=== PATIENT | male | born 1950 | race Caucasian/White ===

== ENCOUNTER 2018-12-03 05:52 | Inpatient (IN) | payer MEDICARE ==
[2018-12-02 14:00] LABS: BASOPHILS # (AUTO) 0.1 (0.0-0.1); BASOPHILS % 0.5 % (0.0-1.0); EOSINOPHILS # (AUTO) 0.3 (0.0-0.4); EOSINOPHILS % 2.8 % (0.0-6.0); HEMATOCRIT 50.9 % (38.2-49.6); HEMOGLOBIN 16.7 g/dL (14.0-18.0); LYMPHOCYTES # (AUTO) 2.4 (1.0-3.2); LYMPHOCYTES % 22.7 % (18.0-39.1); MEAN CORPUSCULAR HEMOGLOBIN 27.4 pg (28-32); MEAN CORPUSCULAR HGB CONC 32.8 g/dL (31-35); MEAN CORPUSCULAR VOLUME 83.6 fL (81-99); MONOCYTES # (AUTO) 0.7 (0.2-0.8); MONOCYTES % 6.8 % (4.4-11.3); NEUTROPHILS # (AUTO) 6.9 (2.1-6.9); NEUTROPHILS % 66.8 % (38.7-80.0); PLATELET COUNT 242 x10e3/uL (140-360); RED BLOOD COUNT 6.09 x10e6/uL (4.3-5.7)
--- NOTE | 2018-12-02 15:12 | Diagnostic Imaging Report ---
EXAMINATION: CHEST 2 VIEWS INDICATION: Pre-op. COMPARISON: None FINDINGS: TUBES and LINES: None. LUNGS: Lungs are well inflated. There is no evidence of pneumonia or pulmonary edema. PLEURA: No pleural effusion or pneumothorax. HEART AND MEDIASTINUM: The cardiomediastinal silhouette is mildly enlarged. Tortuous thoracic aorta. BONES AND SOFT TISSUES: No acute osseous abnormality. UPPER ABDOMEN: No free air under the diaphragm. IMPRESSION: No acute radiographic abnormality. Signed by: Dr. Vinnie Garcia MD on 12/02/2018 3:09 PM
[~2018-12-03] VITALS: Ht 182.9 cm; Wt 107.1 kg
[~2018-12-03 05:52] MED LIST: ADVIL100 MG PO; ALEVE220 M1 PO; ZYRTEC10 M3 PO
--- OUTSIDE RECORDS SUMMARY | 2018-12-03 05:59 | XMS REPORT | Continuity of Care Document ---
Author Author [facility] Interface Address Unknown Phone Unavailable Problems Problem Status Onset Date Classification Date Reported Comments Source R12, K29.00, K22.0 Active 06/24/2017 [facility] UNK Active 03/26/2017 [facility] PNEUMONIA Active 10/16/2015 [facility] COUGH/ FEVER Active 10/16/2015 [facility] 483 - PNEUMONIA: ORGA Active 12/19/2013 [facility] [place] Arthritis Active Problem 07/04/2017 [facility] Hearing decreased Active Problem 07/04/2017 [facility] Heartburn Active Problem 07/04/2017 [facility] Leukocytosis Resolved Problem 07/04/2017 [facility] Anxiety and depression Active Problem 07/04/2017 [facility] Sleep apnea Active Problem 07/04/2017 [facility] PNEUMONIA, UNSPECIFIED ORGANISM Active [facility] DYSPHAGIA, UNSPECIFIED Active [facility] CANDIDAL ESOPHAGITIS Active [facility] FUNCTIONAL DYSPEPSIA Active [facility] HEARTBURN Active [facility] ACUTE GASTRITIS WITHOUT BLEEDING Active [facility] ACHALASIA OF CARDIA Active [facility] Medications Medication Details Route Status Patient Instructions Ordering Provider Order Date Source Albuterol 0.833 MG/ML / Ipratropium [place] 0.167 MG/ML Inhalant Solution 3 mL, Route: NEB, Drug Form: SOLN, Dosing Weight 113.636, kg, ONCE, STAT, Start date: 04/09/17 6:36:00 CDT, Stop date: 04/09/17 6:36:00 CDTNotes: (Same as: Thelma) Inactive 04/09/2017 [facility] sodium chloride 0.9% 500 ml INJ 500 mL 500 mL, Rate: 25 ml/hr, Infuse over: 20 hr, Route: IV, Dosing Weight 113.636 kg, Total Volume: 500, Start date: 04/09/17 6:36:00 CDT, Duration: 30 day, Stop date: 05/09/17 6:35:00 CDT Inactive 04/09/2017 [facility] Aleve 220 mg, PO, as needed, 0 Refill(s) Active 04/07/2017 [facility] Advil PO, as needed Active 04/07/2017 [facility] Amoxicillin 875 MG / Clavulanate 125 MG Oral Tablet [Augmentin 875-mg] 875 mg=1 tab, PO, Q12H, X 7 day, # 14 tab, 0 Refill(s) Active 10/19/2015 [facility] pantoprazole 40 MG Granules [Protonix] =1 Pack, PO, Daily, # 30 ea, 0 Refill(s) Active 10/19/2015 [facility] Sucralfate 100 MG/ML Oral Suspension 1 gm=10 ml, PO, Before Meals & Bedtime, # 200 ml, 1 Refill(s) Active 10/19/2015 [facility] PLease do not give Vanco prior to trough is collected PLease do not give Vanco prior to trough is collected, Reminder, Drug form: MISC, Route: MISC, ONCE, 10/18/15 17:00:00 CDT, Stop date: 10/18/15 17:00:00 CDT Inactive 10/18/2015 [facility] Protonix 40 mg, Route: IVP, Drug form: INJ, BID, Dosing Weight 113.636, kg, Start date: 10/18/15 9:00:00 CDT, Duration: 30 day, Stop date: 11/16/15 17:00:00 CDTNotes: For IV push reconstitute with 10 ml 0.9% sod ium chloride and push over 2 minutes. (Same as: Protonix) No Longer Active 10/18/2015 [facility] Sucralfate 100 MG/ML Oral Suspension [Carafate] 1 gm, 10 mL, Route: PO, Drug form: SUSP, QID, Dosing Weight 113.636, kg, Start date: 10/18/15 9:00:00 CDT, Duration: 30 day, Stop date: 11/16/15 21:00:00 CDTNotes: Enteral feeds may interfere with the absorption of this medication. Shake well. Take 1 hr before or 2 hrs after antacids, dairy pdt, minerals & meals. (Same As: Carafate) No Longer Active 10/18/2015 [facility] Sodium Chloride 0.154 MEQ/ML Injectable Solution 1,000 mL, Rate: 25 ml/hr, Infuse over: 40 hr, Route: IV, Dosing Weight 113.636 kg, Total Volume: 1,000, Start date: 10/18/15 8:11:00 CDT, Duration: 30 day, Stop date: 11/17/15 8:10:00 CDT No Longer Active 10/18/2015 [facility] Reglan 10 mg, 2 mL, Route: IVP, Drug form: INJ, Q6H, Dosing Weight 113.636, kg, Start date: 10/18/15 0:00:00 CDT, Duration: 30 day, Stop date: 11/16/15 18:00:00 CDTNotes: (Same as: Reglan) No Longer Active 10/18/2015 [facility] meropenem 500 mg, Route: IV, Q6Hnow, Dosing Weight 113.636, kg, Start date: 10/16/15 16:00:00 CDT, Duration: 30 day, Stop date: 11/15/15 14:00:00 CDTNotes: Same as Merrem MEDICATION WASTE Product Size: 500 mg Product Wasted: ___ mg No Longer Active 10/16/2015 [facility] Ondansetron 4 mg, 2 mL, Route: IVP, Drug form: INJ, Q6H, Dosing Weight 113.636, kg, PRN Nausea & Vomiting, Start date: 10/16/15 14:01:00 CDT, Duration: 30 day, Stop date: 11/15/15 14:00:00 CDTNotes: (Same as: Zofran) MEDICATION WASTE Product Size: 4 mg Product Wasted: ___ mg No Longer Active 10/16/2015 [facility] Sodium Chloride 0.154 MEQ/ML Injectable Solution 1,000 mL, Rate: 75 ml/hr, Infuse over: 13.3 hr, Route: IV, Dosing Weight 113.636 kg, Total Volume: 1,000, Start date: 10/16/15 14:01:00 CDT, Duration: 30 day, Stop date: 11/15/15 14:00:00 CDT No Longer Active 10/16/2015 [facility] Acetaminophen 650 mg, 2 tab, Route: PO, Drug form: TAB, Q4H, Dosing Weight 113.636, kg, PRN Pain 1-3/Temp > 100.4 F, Start date: 10/16/15 14:01:00 CDT, Duration: 30 day, Stop date: 11/15/15 14:00:00 CDTNotes: Do not exceed 4 gm/day. (Same as: Tylenol) No Longer Active 10/16/2015 [facility] Saline Flush 0.9% 10 ml, Route: IVP, Drug Form: INJ, Dosing Weight 113.636, kg, PRN, PRN Line Flush, Start date: 10/16/15 14:01:00 CDT, Duration: 30 day, Stop date: 11/15/15 14:00:00 CDTNotes: (Same as: BD Posiflush) No Longer Active 10/16/2015 [facility] Vancomycin 1 gm, Route: IVPB, P06Deml, Dosing Weight 113.636, kg, Priority: STAT, Start date: 10/16/15 14:01:00 CDT, Duration: 30 day, Stop date: 11/15/15 6:00:00 CDTNotes: TIME CRITICAL MEDICATION (Same As: Vancocin) Infusion rate 2001 mg: infuse over 2.5 hours MEDICATION WASTE Product Size: 1000 mg Product Wasted: ___ mg No Longer Active 10/16/2015 [facility] Saline Flush 0.9% 10 mL, Route: IVP, Drug Form: INJ, Dosing Weight 113.636, kg, PRN, PRN Line Flush, Start date: 10/16/15 10:22:00 CDT, Duration: 30 day, Stop date: 11/15/15 10:21:00 CDTNotes: Same as: BD Posiflush Sterile Inactive 10/16/2015 [facility] Allergies, Adverse Reactions, Alerts Substance Category Reaction Severity Reaction type Status Date Reported Comments Source Immunizations Immunization Date Given Site Status Last Updated Comments Source Results Order Name Results Value Reference Range Date Interpretation Comments Source Stomach emptying NM Stomach emptying NM Patient Name: JEFFRY GARNER : 1950; Age: 67 years Male MR: [id number] Study: Stomach emptying NM 07/01/2017 9:15 AM [employer]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 COMPARISON: CT on 10/18/2015 TECHNIQUE: Gastric emptying study is performed using 1 mCi of technetium 99m sulfur colloid mixed with scrambled egg administered orally. Total of 4 hours of static imaging was performed at 30 minute intervals in the frontal plane up to 2 hours followed by additional planar imaging at 3 hours and 4 hours. The data was used for gastric emptying calculation/extrapolation. FINDINGS: Significantly delayed gastric emptying. There is consistent radiotracer activity within the dilated esophagus even after 4 hours. There is progression of the radiotracer into bowel. The T-1/2 is 163 minutes (normal for solids < 90 minutes). Gastric emptying at 90 minutes: -5 % Gastric emptying at 2 hours: 7 % (normal greater than 60%) Gastric emptying at 3 hours: 31 % (normal greater than 70%) Gastric emptying at 4 hours: 67 % (normal greater than 90%) IMPRESSION: Significantly delayed gastric emptying suggestive of gastroparesis. Consistent radiotracer activity within the dilated esophagus even after 4 hours, suspicious for high-grade gastroesophageal reflux or achalasia. SL: [id number] 07/01/2017 - - Read by: Tamanna Mello MD Dictated Date/time: 07/01/17 14:22 Electronically Signed by: Tamanna Mello MD 07/01/17 14:26 FINAL REPORT [facility] MCV 82.9 fL 80.0 - 94.0 10/19/2015 [facility] Hgb 14.7 g/dL 14.0 - 18.0 10/19/2015 [facility] Hct 46.2 % 42.0 - 54.0 10/19/2015 [facility] RBC 5.58 M/CMM 4.70 - 6.10 10/19/2015 [facility] WBC 11.4 K/CMM 3.7 - 10.4 10/19/2015 [facility] Platelet 218 K/CMM 133 - 450 10/19/2015 [facility] MPV 7.8 fL 7.4 - 10.4 10/19/2015 [facility] RDW 14.8 % 11.5 - 14.5 10/19/2015 [facility] MCH 26.3 pg 27.0 - 31.0 10/19/2015 [facility] MCHC 31.8 g/dL 32.0 - 36.0 10/19/2015 [facility] Basophils # 0.1 K/CMM 0.0 - 0.2 10/19/2015 [facility] Monocytes # 0.9 K/CMM 0.0 - 0.8 10/19/2015 [facility] HEMATOLOGY Lymphocytes # 2.1 K/CMM 1.0 - 5.5 10/19/2015 [facility] HEMATOLOGY Eosinophils # 0.3 K/CMM 0.0 - 0.5 10/19/2015 [facility] HEMATOLOGY Segs 70.8 % 45.0 - 75.0 10/19/2015 [facility] Lymphocytes 18.5 % 20.0 - 40.0 10/19/2015 [facility] Segs-Bands # 8.1 K/CMM 1.5 - 8.1 10/19/2015 [facility] Basophils 0.6 % 0.0 - 1.0 10/19/2015 [facility] Monocytes 7.5 % 2.0 - 12.0 10/19/2015 [facility] Eosinophils 2.6 % 0.0 - 4.0 10/19/2015 [facility] TOXICOLOGY Vanco Tr 8.3 ug/ml 10/18/2015 [facility] TOXICOLOGY Vanco Tr TND 1800 10/18/2015 [facility] Abdomen/Pelvis w IV contrast CT Abdomen/Pelvis w IV contrast CT Patient Name: JEFFRY GARNER : 1950; Age: 65 years y/o Male MR: [id number] * I. COMPUTED TOMOGRAPHY SCAN OF THE ABDOMEN with contrast. * II. COMPUTED TOMOGRAPHY SCAN OF THE PELVIS with contrast HISTORY: : Abdominal distension; achalasia COMPARISON: There are no prior CT scans of the abdomen or pelvis available for comparison or review. A chest computed tomography scan without contrast of 10/16/2015 was reviewed. * TECHNIQUE: I. COMPUTED TOMOGRAPHY SCAN OF THE ABDOMEN with contrast: Helical CT images were obtained on a multidetector computed tomography from the domes the diaphragms to the iliac crests following the intravenous administration of nonionic iodinated contrast. Oral contrast was also provided. II. COMPUTED TOMOGRAPHY SCAN OF THE PELVIS with contrast: Helical CT images were obtained on a multidetector computed tomography from the iliac crests to the pubic symphysis following the intravenous administration of nonionic iodinated contrast. Oral contrast was also provided. Coronal and sagittal reconstructions were obtained. CT radiation dose DLP: mGy-cm FINDINGS: There is no evidence of an acute intra-abdominal process. There is no free intraperitoneal gas, intra-abdominal abscess, focal inflammation, or bowel obstruction. The liver, spleen, pancreas, and adrenal glands are normal in appearance. The kidneys are normal in size and show good, symmetrical excretion without hydronephrosis. There is a 10 mm posterior exophytic left upper pole renal cyst. There is 8mm posterior exophytic right lower pole renal cyst. No other focal lesions are seen. There is distention of the esophagus as well as thickening of the wall. The findings are similar to the recent chest computed tomography scan and are consistent with the patient's history of achalasia. The gastrointestinal structures are otherwise unremarkable. There is no evidence of obstruction or ileus. The appendix is not definitely visualized. Hhere is no evidence of appendicitis. There is marked enlargement of the prostate gland which measures 7.6 x 5.5 cm in maximal cross-section. No mass or adenopathy is seen within the abdomen or pelvis. There is no ascites or other fluid collection. The aorta is normal in caliber. The visualized lung bases are clear. There has been clearing of the vague infiltrates noted on the recent chest computed tomography scan. There are no pleural effusions. The heart is normal in size. There is no pericardial effusion. There are mild scattered degenerative changes involving the visualized spine. The osseous structures are otherwise unremarkable. No blastic or destructive lesions are seen. IMPRESSION: 1. No evidence for an acute intra-abdominal process. 2. Dilated esophagus with thickened wall, similar to the recent chest computed tomography scan and consistent with history of achalasia. 3. Single very small bilateral renal cysts. 4. Marked enlargement of the prostate gland. 5. Resolution of previous noted pulmonary infiltrates from the prior chest computed tomography scan of 10/16/2015. SL: [id number] 10/18/2015 - - Read by: Elijah Sharma MD Dictated Date/time: 10/18/15 13:14 Electronically Signed by: Elijah Sharma MD 10/18/15 13:22 FINAL REPORT [facility] wo contrast CT Chest wo contrast CT CT CHEST WITHOUT CONTRAST: HISTORY: Dyspnea, pneumonia. TECHNIQUE: Multislice axial acquisitions were done through the chest without contrast. Sagittal and coronal reformatted images were also obtained. FINDINGS: The esophagus is mildly dilated, thick walled and filled with fluid. There is no discrete mass or hiatal hernia demonstrated. There is no other mediastinal mass or significant lymph node enlargement. There are mild interstitial infiltrates throughout the left lung with view small areas of confluence or groundglass opacity in the left upper lobe. A few mild interstitial opacities in the right upper lobe are also noted. There is no lung consolidation, mass or atelectasis. There are no significant pleural abnormalities. There are changes in the thoracic spine are noted. There are no acute osseous abnormalities. IMPRESSION: 1. Esophageal dilatation with wall thickening and fluid. There is no definite obstructing lesion however endoscopic evaluation is suggested for further evaluation. 2. Mild interstitial infiltrates and a few small groundglass opacities in the lungs, more prominent on the left. In light of the esophageal abnormality, inflammatory changes due to aspiration would be a consideration. [id number] 10/16/2015 - - Read by: Cameron Collado MD Dictated Date/time: 10/17/15 09:59 Electronically Signed by: Cameron Collado MD 10/17/15 10:07 FINAL REPORT [facility] CHEM PANEL Procalcitonin Lvl 0.66 ng/mL 0.00 - 0.10 10/16/2015 [facility] VIRAL - SEROLOGY Influ A Negative (10/16/15 12:18 PM) Negative 10/16/2015 [facility] VIRAL - SEROLOGY Influ B Negative (10/16/15 12:18 PM) Negative 10/16/2015 [facility] CARDIAC ENZYMES CK MB Index 0.9 0.0 - 2.5 10/16/2015 [facility] CARDIAC ENZYMES CK MB 0.5 ng/mL 0.5 - 3.6 10/16/2015 [facility] CARDIAC ENZYMES Troponin-I null 0.00 - 0.40 10/16/2015 [facility] CARDIAC ENZYMES BNP 24 pg/mL <=100 pg/mL 10/16/2015 [facility] CARDIAC ENZYMES Total CK 56 unit/L 12 - 191 10/16/2015 [facility] ELECTROLYTES Potassium Lvl 4.1 meq/L 3.5 - 5.1 10/16/2015 [facility] ELECTROLYTES Sodium Lvl 137 meq/L 135 - 145 10/16/2015 [facility] ELECTROLYTES Chloride Lvl 107 meq/L 95 - 109 10/16/2015 [facility] ELECTROLYTES Calcium Lvl 8.8 mg/dL 8.5 - 10.5 10/16/2015 [facility] ELECTROLYTES AGAP 9.1 meq/L 10.0 - 20.0 10/16/2015 [facility] ELECTROLYTES CO2 25 meq/L 24 - 32 10/16/2015 [facility] ELECTROLYTES Creatinine Lvl 1.03 mg/dL 0.50 - 1.40 10/16/2015 [facility] ELECTROLYTES Glucose Lvl 107 mg/dL 70 - 99 10/16/2015 [facility] ELECTROLYTES BUN 15 mg/dL 7 - 22 10/16/2015 [facility] ELECTROLYTES eGFR 76 mL/min/1.73m2 10/16/2015 Result Comment: The eGFR is calculated using the CKD-EPI formula. In most young, healthy individuals the eGFR will be >90 mL/min/1.73m2. The eGFR declines with age. An eGFR of 60-89 may be normal in some populations, particularly the elderly, for whom the CKD-EPI formula has not been extensively validated. Use of the eGFR is not recommended in the following populations: Individuals with unstable creatinine concentrations, including patients and those with serious co-morbid conditions. Patients with extremes in muscle mass or diet. The data above are obtained from the National Kidney Disease Education Program (NKDEP) which additionally recommends that when the eGFR is used in patients with extremes of body mass index for purposes of drug dosing, the eGFR should be multiplied by the estimated BMI. [facility] HEMATOLOGY Plt Morph Normal (10/16/15 10:58 AM) 10/16/2015 [facility] RBC Morph Normal (10/16/15 10:58 AM) 10/16/2015 [facility] Basophils 0.4 % 0.0 - 1.0 10/16/2015 [facility] Segs-Bands # 21.6 K/CMM 1.5 - 8.1 10/16/2015 [facility] Lymphocytes # 1.1 K/CMM 1.0 - 5.5 10/16/2015 [facility] HEMATOLOGY Monocytes # 1.1 K/CMM 0.0 - 0.8 10/16/2015 [facility] HEMATOLOGY Eosinophils # 0.1 K/CMM 0.0 - 0.5 10/16/2015 [facility] HEMATOLOGY Basophils # 0.1 K/CMM 0.0 - 0.2 10/16/2015 [facility] HEMATOLOGY Eosinophils 0.6 % 0.0 - 4.0 10/16/2015 [facility] HEMATOLOGY Monocytes 4.7 % 2.0 - 12.0 10/16/2015 [facility] HEMATOLOGY Segs 89.5 % 45.0 - 75.0 10/16/2015 [facility] Lymphocytes 4.8 % 20.0 - 40.0 10/16/2015 [facility] Platelet 206 K/CMM 133 - 450 10/16/2015 [facility] RDW 14.7 % 11.5 - 14.5 10/16/2015 [facility] MPV 7.5 fL 7.4 - 10.4 10/16/2015 [facility] Hgb 15.5 g/dL 14.0 - 18.0 10/16/2015 [facility] RBC 5.88 M/CMM 4.70 - 6.10 10/16/2015 [facility] MCV 82.5 fL 80.0 - 94.0 10/16/2015 [facility] Hct 48.5 % 42.0 - 54.0 10/16/2015 [facility] MCHC 31.9 g/dL 32.0 - 36.0 10/16/2015 [facility] MCH 26.3 pg 27.0 - 31.0 10/16/2015 [facility] WBC 24.0 K/CMM 3.7 - 10.4 10/16/2015 [facility] Chest 2 views DX Chest 2 views DX Chest 2 views DX CLINICAL HISTORY: Dyspnea COMPARISON: 12/19/2013 FINDINGS: LUNGS: Lungs are reasonably well inflated. Interval development of mild diffuse increase in reticular opacities involving both lungs. No pneumothorax is evident. Trachea is midline. Pulmonary vasculature is within normal limits. CARDIOMEDIASTINUM: Cardiomediastinal silhouette is within normal limits. OSSEOUS STRUCTURES: No significant bony abnormality is noted. Multiple EKG leads and other wires project over the patient's chest. IMPRESSION: Mild diffuse increase in reticular opacities involving both lungs. Primary differential considerations are interstitial pneumonia versus interstitial pneumonitis SL: [id number] 10/16/2015 - - Read by: Anton Hoffman MD Dictated Date/time: 10/16/15 10:53 Electronically Signed by: Anton Hoffman MD 10/16/15 10:55 FINAL REPORT [facility] Chest 2 views Chest 2 views CHEST RADIOGRAPHY CLINICAL HISTORY: Shortness of breath. COMPARISON IMAGING: None. FINDINGS: Two views of the chest were acquired and submitted for evaluation. No pleural fluid is identified. The contour of the cardiac silhouette is within normal limits. There is no significant pulmonary consolidation or nodularity. Bones are unremarkable. IMPRESSION: No significant abnormality. 12/19/2013 - - Read by: Bashir Yusuf MD Dictated Date/time: 12/19/13 13:03 Electronically Signed by: Bashir Yusuf MD 12/19/13 13:03 FINAL REPORT [facility] Vital Signs Vital Sign Value Date Comments Source Systolic (mm Hg) 134 04/15/2017 [facility] Diastolic (mm Hg) 79 04/15/2017 [facility] Respitory Rate 18 04/15/2017 [facility] Systolic (mm Hg) 128 04/09/2017 [facility] Diastolic (mm Hg) 88 04/09/2017 [facility] Respitory Rate 20 04/09/2017 [facility] Systolic (mm Hg) 115 04/09/2017 [facility] Diastolic (mm Hg) 86 04/09/2017 [facility] Respitory Rate 21 04/09/2017 [facility] Systolic (mm Hg) 122 04/09/2017 [facility] Diastolic (mm Hg) 81 04/09/2017 [facility] Respitory Rate 20 04/09/2017 [facility] Temperature Oral (F) 98.3 F 04/07/2017 [facility] Heart Rate 79 04/07/2017 [facility] BMI Calculated 33.98 04/07/2017 [facility] Height 182.88 cm 04/07/2017 [facility] Weight 113.636 04/07/2017 [facility] Systolic (mm Hg) 103 10/19/2015 [facility] Diastolic (mm Hg) 69 10/19/2015 [facility] Temperature Oral (F) 98.1 F 10/19/2015 [facility] Heart Rate 66 10/19/2015 [facility] Respitory Rate 18 10/19/2015 [facility] Systolic (mm Hg) 96 10/19/2015 [facility] Diastolic (mm Hg) 57 10/19/2015 [facility] Respitory Rate 18 10/19/2015 [facility] Temperature Oral (F) 98.2 F 10/19/2015 [facility] Heart Rate 67 10/19/2015 [facility] Systolic (mm Hg) 109 10/19/2015 [facility] Diastolic (mm Hg) 67 10/19/2015 [facility] Respitory Rate 16 10/19/2015 [facility] Heart Rate 66 10/19/2015 [facility] Temperature Oral (F) 98.1 F 10/19/2015 [facility] Weight 113.636 10/16/2015 [facility] BMI Calculated 33.98 10/16/2015 [facility] Height 182.88 cm 10/16/2015 [facility] BMI Calculated 33.98 10/16/2015 [facility] Height 182.88 cm 10/16/2015 [facility] Weight 113.636 10/16/2015 [facility] Encounters Location Location Details Encounter Type Encounter Number Reason For Visit Attending Provider ADM Date DC Date Status Source [facility] [place] [facility] [id number] Rian Herrerae 12/19/2013 12/20/2013 [facility] Inpatient [id number] Florentino Hernandez 10/16/2015 10/19/2015 [facility] Bedded Outpatient [id number] [facility] 04/09/2017 04/09/2017 [facility] Bedded Outpatient [id number] [facility] 04/15/2017 04/15/2017 [facility] Outpatient [id number] Hiader Velarde 07/01/2017 07/02/2017 [facility] Procedures Procedure Code Date Perfomer Comments Source Hernia repair [id number] 07/06/1998 [facility] Cystoscopy [id number] [facility] Ligament repair [id number] [facility]
--- OUTSIDE RECORDS SUMMARY | 2018-12-03 05:59 | XMS REPORT | Summary of Care ---
Author Author [facility] Organization [facility] Address Unknown Phone Unavailable Encounter HQ Marva(RADHA) [id number] Date(s): 10/16/15 - 10/19/15 [facility] [address] [place] [address]- Discharge Disposition: Home Attending Physician: Florentino Hernandez MD Admitting Physician: Florentino Hernandez MD Vital Signs 1 2 3 Most recent to oldest [Reference Range]: 182.88 cm (10/16/15 3:30 PM) 182.88 cm (10/16/15 10:10 AM) Height 98.1 DegF (10/19/15 3:00 PM) 98.2 DegF (10/19/15 11:00 AM) 98.1 DegF (10/19/15 7:00 AM) Temperature Oral [96.4-99.1 DegF] 103/69 mmHg (10/19/15 3:00 PM) 96/57 mmHg (10/19/15 11:00 AM) 109/67 mmHg (10/19/15 7:00 AM) Blood Pressure [90-140/60-90 mmHg] 18 BRMIN (10/19/15 3:00 PM) 18 BRMIN (10/19/15 11:00 AM) 16 BRMIN (10/19/15 7:00 AM) Respiratory Rate [14-20 BRMIN] 66 bpm (10/19/15 3:00 PM) 67 bpm (10/19/15 11:00 AM) 66 bpm (10/19/15 7:00 AM) Peripheral Pulse Rate [60-100 bpm] 113.636 kg (10/16/15 3:30 PM) 113.636 kg (10/16/15 10:10 AM) Weight 33.98 m2 (10/16/15 3:30 PM) 33.98 m2 (10/16/15 10:10 AM) Body Mass Index Problem List No data available for this section Allergies, Adverse Reactions, Alerts Substance Reaction Severity Status NKDA Active Medications acetaminophen 650 mg, 2 tab, Route: PO, Drug form: TAB, Q4H, Dosing Weight 113.636, kg, PRN Pa in 1-3/Temp > 100.4 F, Start date: 10/16/15 14:01:00 CDT, Duration: 30 day, Stop date: 11/15/15 14:00:00 CDT Notes: Do not exceed 4 gm/day. (Same as: Tylenol) Start Date: 10/16/15 Stop Date: 10/19/15 Status: Discontinued Augmentin 875 mg oral tablet 875 mg=1 tab, PO, Q12H, X 7 day, # 14 tab, 0 Refill(s) Start Date: 10/19/15 Stop Date: 10/26/15 Status: Ordered Carafate 1 g/10 mL oral suspension 1 gm, 10 mL, Route: PO, Drug form: SUSP, QID, Dosing Weight 113.636, kg, Start d ate: 10/18/15 9:00:00 CDT, Duration: 30 day, Stop date: 11/16/15 21:00:00 CDT Notes: Enteral feeds may interfere with the absorption of this medication. Clay e well. Take 1 hr before or 2 hrs after antacids, dairy pdt, minerals & meals. (Same As: Carafate) Start Date: 10/18/15 Stop Date: 10/19/15 Status: Discontinued meropenem + Sodium Chloride 0.9% IV 100 mL 500 mg, Route: IV, Q6Hnow, Dosing Weight 113.636, kg, Start date: 10/16/15 16:00 :00 CDT, Duration: 30 day, Stop date: 11/15/15 14:00:00 CDT Notes: Same as Merrem MEDICATION WASTE Product Size: 500 mgProduct Wast ed: ___ mg Start Date: 10/16/15 Stop Date: 10/19/15 Status: Discontinued ondansetron 4 mg, 2 mL, Route: IVP, Drug form: INJ, Q6H, Dosing Weight 113.636, kg, PRN Naus ea & Vomiting, Start date: 10/16/15 14:01:00 CDT, Duration: 30 day, Stop date: 11/15/15 14:00:00 CDT Notes: (Same as: Herb) MEDICATION WASTE Product Size: 4 mgProduct Was sadia: ___ mg Start Date: 10/16/15 Stop Date: 10/19/15 Status: Discontinued PLease do not give Vanco prior to trough is collected PLease do not give Vanco prior to trough is collected, Reminder, Drug form: MISC , Route: MISC, ONCE, 10/18/15 17:00:00 CDT, Stop date: 10/18/15 17:00:00 CDT Start Date: 10/18/15 Stop Date: 10/18/15 Status: Completed Protonix 40 mg, Route: IVP, Drug form: INJ, BID, Dosing Weight 113.636, kg, Start date: 0 10/18/15 9:00:00 CDT, Duration: 30 day, Stop date: 11/16/15 17:00:00 CDT Notes: For IV push reconstitute with 10 ml 0.9% sodium chloride and push over 2 minutes. (Same as: Protonix) Start Date: 10/18/15 Stop Date: 10/19/15 Status: Discontinued Protonix 40 mg oral granule =1 Pack, PO, Daily, # 30 ea, 0 Refill(s) Start Date: 10/19/15 Status: Ordered Reglan 10 mg, 2 mL, Route: IVP, Drug form: INJ, Q6H, Dosing Weight 113.636, kg, Start d ate: 10/18/15 0:00:00 CDT, Duration: 30 day, Stop date: 11/16/15 18:00:00 CDT Notes: (Same as: Reglan) Start Date: 10/18/15 Stop Date: 10/19/15 Status: Discontinued Saline Flush 0.9% 10 ml, Route: IVP, Drug Form: INJ, Dosing Weight 113.636, kg, PRN, PRN Line Flus h, Start date: 10/16/15 14:01:00 CDT, Duration: 30 day, Stop date: 11/15/15 14:0 0:00 CDT Notes: (Same as: BD Posiflush) Start Date: 10/16/15 Stop Date: 10/19/15 Status: Discontinued Saline Flush 0.9% 10 mL, Route: IVP, Drug Form: INJ, Dosing Weight 113.636, kg, PRN, PRN Line Flus h, Start date: 10/16/15 10:22:00 CDT, Duration: 30 day, Stop date: 11/15/15 10:2 1:00 CDT Notes: Same as: BD Posiflush Sterile Start Date: 10/16/15 Stop Date: 10/16/15 Status: Discontinued Sodium Chloride 0.9% IV 1,000 mL 1,000 mL, Rate: 25 ml/hr, Infuse over: 40 hr, Route: IV, Dosing Weight 113.636 k g, Total Volume: 1,000, Start date: 10/18/15 8:11:00 CDT, Duration: 30 day, Stop date: 11/17/15 8:10:00 CDT Start Date: 10/18/15 Stop Date: 10/19/15 Status: Discontinued Sodium Chloride 0.9% IV 1,000 mL 1,000 mL, Rate: 75 ml/hr, Infuse over: 13.3 hr, Route: IV, Dosing Weight 113.636 kg, Total Volume: 1,000, Start date: 10/16/15 14:01:00 CDT, Duration: 30 day, S top date: 11/15/15 14:00:00 CDT Start Date: 10/16/15 Stop Date: 10/19/15 Status: Discontinued sucralfate 1 g/10 mL oral suspension 1 gm=10 ml, PO, Before Meals & Bedtime, # 200 ml, 1 Refill(s) Start Date: 10/19/15 Status: Ordered vancomycin + Sodium Chloride 0.9% IV 250 mL 1 gm, Route: IVPB, [id number], Dosing Weight 113.636, kg, Priority: STAT, Start clayton e: 10/16/15 14:01:00 CDT, Duration: 30 day, Stop date: 11/15/15 6:00:00 CDT Notes: TIME CRITICAL MEDICATION(Same As: Vancocin)Infusion rate< 1000 mg: infuse over 1 [id number] - 1500 mg: infuse over 1.5 [id number] - 2000 mg: infuse over 2 hours> 2001 mg: infuse over 2.5 hours MEDICATION WASTE Product Size: 1000 mgProduct Wasted: ___ mg Start Date: 10/16/15 Stop Date: 10/19/15 Status: Discontinued Results ELECTROLYTES Most recent to 1 2 oldest [Reference Range]: Sodium Lvl [135-145 137 mEq/L mEq/L] (10/16/15 10:58 AM) Potassium Lvl 4.1 mEq/L [3.5-5.1 mEq/L] (10/16/15 10:58 AM) Chloride Lvl [95-109 107 mEq/L mEq/L] (10/16/15 10:58 AM) CO2 [24-32 mEq/L] 25 mEq/L (10/16/15 10:58 AM) AGAP [10.0-20.0 9.1 mEq/L mEq/L] *LOW* (10/16/15 10:58 AM) CHEM PANEL Most recent to 1 2 oldest [Reference Range]: Creatinine Lvl 1.03 mg/dL [0.50-1.40 mg/dL] (10/16/15 10:58 AM) eGFR 76 mL/min/1.73m2 1 *NA* (10/16/15 10:58 AM) BUN [7-22 mg/dL] 15 mg/dL (10/16/15 10:58 AM) Glucose Lvl [70-99 107 mg/dL mg/dL] *HI* (10/16/15 10:58 AM) Calcium Lvl 8.8 mg/dL [8.5-10.5 mg/dL] (10/16/15 10:58 AM) Procalcitonin Lvl 0.66 ng/mL [0.00-0.10 ng/mL] *HI* (10/16/15 12:18 PM) 1Result Comment: The eGFR is calculated using the [...] from the National Kidney Disease Education Program ( NKDEP) which additionally recommends that when the eGFR is used in patients with extremes of body mass index for purposes of drug dosing, the eGFR should be mul tiplied by the estimated BMI. CARDIAC ENZYMES Most recent to 1 2 oldest [Reference Range]: Total CK [12-191 56 unit/L unit/L] (10/16/15 10:58 AM) CK MB [0.5-3.6 0.5 ng/mL ng/mL] (10/16/15 10:58 AM) CK MB Index 0.9 [0.0-2.5] (10/16/15 10:58 AM) Troponin-I <0.02 ng/mL [0.00-0.40 ng/mL] (10/16/15 10:58 AM) BNP [<=100 pg/mL] 24 pg/mL (10/16/15 10:58 AM) TOXICOLOGY Most recent to 1 2 oldest [Reference Range]: Vanco Tr TND 1800 *NA* (10/18/15 5:21 PM) Vanco Tr 8.3 ug/ml *NA* (10/18/15 5:21 PM) HEMATOLOGY Most recent to 1 2 oldest [Reference Range]: WBC [3.7-10.4 K/CMM] 11.4 K/CMM 24.0 K/CMM *HI* *HI* (10/19/15 4:30 AM) (10/16/15 10:58 AM) RBC [4.70-6.10 5.58 M/CMM 5.88 M/CMM M/CMM] (10/19/15 4:30 AM) (10/16/15 10:58 AM) Hgb [14.0-18.0 g/dL] 14.7 g/dL 15.5 g/dL (10/19/15 4:30 AM) (10/16/15 10:58 AM) Hct [42.0-54.0 %] 46.2 % 48.5 % (10/19/15 4:30 AM) (10/16/15 10:58 AM) MCV [80.0-94.0 fL] 82.9 fL 82.5 fL (10/19/15 4:30 AM) (10/16/15 10:58 AM) MCH [27.0-31.0 pg] 26.3 pg 26.3 pg *LOW* *LOW* (10/19/15 4:30 AM) (10/16/15 10:58 AM) MCHC [32.0-36.0 31.8 g/dL 31.9 g/dL g/dL] *LOW* *LOW* (10/19/15 4:30 AM) (10/16/15 10:58 AM) RDW [11.5-14.5 %] 14.8 % 14.7 % *HI* *HI* (10/19/15 4:30 AM) (10/16/15 10:58 AM) Platelet [133-450 218 K/CMM 206 K/CMM K/CMM] (10/19/15 4:30 AM) (10/16/15 10:58 AM) MPV [7.4-10.4 fL] 7.8 fL 7.5 fL (10/19/15 4:30 AM) (10/16/15 10:58 AM) Segs [45.0-75.0 %] 70.8 % 89.5 % (10/19/15 4:30 AM) *HI* (10/16/15 10:58 AM) Lymphocytes 18.5 % 4.8 % [20.0-40.0 %] *LOW* *LOW* (10/19/15 4:30 AM) (10/16/15 10:58 AM) Monocytes [2.0-12.0 7.5 % 4.7 % %] (10/19/15 4:30 AM) (10/16/15 10:58 AM) Eosinophils [0.0-4.0 2.6 % 0.6 % %] (10/19/15 4:30 AM) (10/16/15 10:58 AM) Basophils [0.0-1.0 0.6 % 0.4 % %] (10/19/15 4:30 AM) (10/16/15 10:58 AM) Segs-Bands # 8.1 K/CMM 21.6 K/CMM [1.5-8.1 K/CMM] (10/19/15 4:30 AM) *HI* (10/16/15 10:58 AM) Lymphocytes # 2.1 K/CMM 1.1 K/CMM [1.0-5.5 K/CMM] (10/19/15 4:30 AM) (10/16/15 10:58 AM) Monocytes # [0.0-0.8 0.9 K/CMM 1.1 K/CMM K/CMM] *HI* *HI* (10/19/15 4:30 AM) (10/16/15 10:58 AM) Eosinophils # 0.3 K/CMM 0.1 K/CMM [0.0-0.5 K/CMM] (10/19/15 4:30 AM) (10/16/15 10:58 AM) Basophils # [0.0-0.2 0.1 K/CMM 0.1 K/CMM K/CMM] (10/19/15 4:30 AM) (10/16/15 10:58 AM) RBC Morph Normal (10/16/15 10:58 AM) Plt Morph Normal (10/16/15 10:58 AM) VIRAL - SEROLOGY Most recent to 1 2 oldest [Reference Range]: Influ A [Negative] Negative (10/16/15 12:18 PM) Influ B [Negative] Negative (10/16/15 12:18 PM) Immunizations No data available for this section Procedures No data available for this section Social History Social History Type Response Smoking Status Never smoker; Exposure to Tobacco Smoke None; Cigarette Smoking Last 365 Days No; Reg Smoking Cessation Counseling No Assessment and Plan Extracted from: Title: Clinical Document Author: Haider Velarde MD Date: 10/19/15 Progress Note - Daily [facility] Completed: Oct, 08:30 by Haider Velarde MD RM: 336 - 2W, SE [id number] (: 1950) M Attending: Florentino Hernandez MDPhone: Service: Pulmonary Service Reason for Admission: PNEUMONIA Working DRG: Simple pneumonia & pleurisy w/o CC/SENIOR CARE Code status: Full Code [Ordered]Current diet: Isolation: None Documented Allergies: NKDA SUBJECTIVE Doing well No vomitting Mild nausea 24hr Labs 10/18 0430 WBC11.4 H RBC5.58 Hgb14.7 Hct46.2 MCV82.9 MCH26.3 L MCHC31.8 L RDW14.8 H Chbumwmq759 MPV7.8 Segs70.8 Monocytes7.5 Ehpljbwtkct27.5 L Eosinophils2.6 Basophils0.6 Segs-Bands #8.1 Lymphocytes #2.1 Monocytes #0.9 H Eosinophils #0.3 Basophils #0.1 10/17 1721 Vanco Tr [id number] Vanco Tr8.3 Pickett still necessary (Yes/No): Line still necessary (Yes/No): VitalsTmp(F)[id number] 10/18 07:0098.626715/429072--- 10/18 04:0097.454140/016105--- 10/18 00:0098.180850/332849--- 10/17 20:0098.014633/325570--- 10/17 15:5998.868455/725617--- 24 Hr Tmax: 98.3F (36.83c) at 10/18 00:00Vital Signs are the last 5 in the past 48 hours. DateWt(kg)Wt(lb)Ht(cm)Ht(in)Method 10/15 (initial)113.64 250.00Estimated 82.88 72.00Stated I&ORecordInOutBal 10/1423hr Tot 3770 0 3770 10/1323hr Tot 1998 0 1998 Medications (11) Active Scheduled Meds (5): 10/16/15 meropenem + Sodium Chloride 0.9% IV 100 mL 500 mg IV Q6Hnow 33.33 ml/hr 10/18/15 metoclopramide (Reglan) 10 mg IVP Q6H 10/18/15 pantoprazole (Protonix) 40 mg IVP BID 10/18/15 sucralfate (Carafate 1 g/10 mL oral suspension) 1 gm PO QID 10/16/15 vancomycin + Sodium Chloride 0.9% IV 250 mL 1 gm IVPB [id number] 250 ml/hr Unscheduled Meds: None PRN Meds (3): 10/16/15 acetaminophen 650 mg PO Q4H 10/16/15 ondansetron 4 mg IVP Q6H 10/16/15 sodium chloride (Saline Flush 0.9%) 10 ml IVP PRN One Time Meds (1): 10/18/15 (not done) non-formulary (PLease do not give Vanco prior to trough is collected) MISC ONCE Continuous Infusions (2): 10/16/15 Sodium Chloride 0.9% IV 1,000 mL 1,000 mL 75 ml/hr 10/18/15 Sodium Chloride 0.9% IV 1,000 mL 1,000 mL 25 ml/hr EXAM HEENT: EOM intact, No scleral icterus NECK: Supple CHEST: CTA B/L, No retractions, CVS: S1 and S2 WNL ABDOMEN: soft, BS +, no rebound, No guarding, No tenderness EXT: No edema, SKIN: No jaundice NEURO: AAO x 3 IMPRESSION: 1. Dysphagia. 2. Odynophagia 3. Abnormal CT scan imaging revealing dilated esophagus: achylasia 4. EGD: dilated esophagus with tight GEJ concerning for achylasia. s/p Dilation upto 60F 5. Aspiration Pneumonia 6. Antral Nodule 7. Acute gastritis w/o bleeding RECOMMENDATIONS: 1. PPI and carafate . 2. Reglan 3. F/u Bx 4. High Resolution esophageal manometry as outpt. 5. Dysphagia Diet 6. If confirmed Achylasia, may require Achylasia - 3cm dilation vs thorasic approach myotomy as oupt. d/w and pt.
--- OUTSIDE RECORDS SUMMARY | 2018-12-03 05:59 | XMS REPORT | Summary of Care ---
Author Author [facility] Organization [facility] Address Unknown Phone Unavailable Encounter HQ Marva(FIN) [id number] Date(s): 04/09/17 - 04/09/17 [facility] [address] [place] [address]- Discharge Disposition: Home or Self Care Attending Physician: Antwon Bolton MD Referring Physician: Antwon Bolton MD Vital Signs 1 2 3 Most recent to oldest [Reference Range]: 182.88 cm (04/07/17 10:34 AM) Height 98.3 DegF (04/07/17 10:40 AM) Temperature Oral [96.4-99.1 DegF] 128/88 mmHg (04/09/17 8:15 AM) 115/86 mmHg (04/09/17 8:00 AM) 122/81 mmHg (04/09/17 7:46 AM) Blood Pressure [90-140/60-90 mmHg] 20 BRMIN (04/09/17 8:15 AM) 21 BRMIN *HI* (04/09/17 8:00 AM) 20 BRMIN (04/09/17 7:46 AM) Respiratory Rate [14-20 BRMIN] 79 bpm (04/07/17 10:40 AM) Peripheral Pulse Rate [60-100 bpm] 113.636 kg (04/07/17 10:34 AM) Weight 33.98 m2 (04/07/17 10:34 AM) Body Mass Index Problem List Condition Effective Dates Status Health Status Informant Arthritis(Confirmed) Active Hearing Active decreased(Confirmed) Heartburn(Confirmed) Active Leukocytosis(Confirm Resolved ed) Anxiety and Active depression(Confirmed ) Sleep Active apnea(Confirmed) Allergies, Adverse Reactions, Alerts Substance Reaction Severity Status NKDA Active Medications Advil PO, as needed Start Date: 04/07/17 Status: Ordered albuterol-ipratropium 2.5-0.5 mg inhalation solution 3 mL, Route: NEB, Drug Form: SOLN, Dosing Weight 113.636, kg, ONCE, STAT, Start date: 04/09/17 6:36:00 CDT, Stop date: 04/09/17 6:36:00 CDT Notes: (Same as: Duoneb) Start Date: 04/09/17 Stop Date: 04/09/17 Status: Ordered Aleve 220 mg, PO, as needed, 0 Refill(s) Start Date: 04/07/17 Status: Ordered sodium chloride 0.9% 500 ml INJ 500 mL 500 mL, Rate: 25 ml/hr, Infuse over: 20 hr, Route: IV, Dosing Weight 113.636 kg, Total Volume: 500, Start date: 04/09/17 6:36:00 CDT, Duration: 30 day, Stop clayton e: 05/09/17 6:35:00 CDT Start Date: 04/09/17 Stop Date: 04/09/17 Status: Discontinued Results No data available for this section Immunizations No data available for this section Procedures Procedure Date Related Diagnosis Body Site Hernia repair 1998 Cystoscopy Ligament repair Social History Social History Type Response Smoking Status Former smoker; Exposure to Tobacco Smoke None; Cigarette Smoking Last 365 Days No; Reg Smoking Cessation Counseling No Assessment and Plan No data available for this section
--- OUTSIDE RECORDS SUMMARY | 2018-12-03 05:59 | XMS REPORT | Summary of Care ---
Author Organization Unknown Address Unknown Phone Unavailable Encounter HQ Hollier_jennifer(RADHA) [id number] Date(s): 12/19/13 - 12/19/13 [facility] - [address] [address]- [place] Discharge Disposition: Home Physician Attending: Rian Reeder MD Reason for Visit 483 - PNEUMONIA: ORGA Problem List No data available for this section Allergies, Adverse Reactions, Alerts No data available for this section Medications No data available for this section Medications Administered During Your Visit No data available for this section Immunizations No data available for this section
--- OUTSIDE RECORDS SUMMARY | 2018-12-03 05:59 | XMS REPORT | Summary of Care ---
Author Author [facility] Organization [facility] Address Unknown Phone Unavailable Encounter HQ Radha_jennifer(FIN) [id number] Date(s): 04/15/17 - 04/15/17 [facility] [address] [place] [address]- Discharge Disposition: Home or Self Care Attending Physician: Antwon Bolton MD Referring Physician: Antwon Bolton MD Vital Signs Most recent to 1 oldest [Reference Range]: Blood Pressure 134/79 mmHg [90-140/60-90 mmHg] (04/15/17 8:00 AM) Respiratory Rate 18 BRMIN [14-20 BRMIN] (04/15/17 8:00 AM) Problem List Condition Effective Dates Status Health Status Informant Arthritis(Confirmed) Active Hearing Active decreased(Confirmed) Heartburn(Confirmed) Active Leukocytosis(Confirm Resolved ed) Anxiety and Active depression(Confirmed ) Sleep Active apnea(Confirmed) Allergies, Adverse Reactions, Alerts Substance Reaction Severity Status NKDA Active Medications No Known Medications Results No data available for this section [...]
--- OUTSIDE RECORDS SUMMARY | 2018-12-03 05:59 | XMS REPORT ---
Author Author [facility] Address Unknown Phone Unavailable Care Team Providers Care Wheel Polisher Name Role Phone MEEK RIVERA Unavailable Unavailable Problems This patient has no known problems. Allergies, Adverse Reactions, Alerts This patient has no known allergies or adverse reactions. Medications This patient has no known medications. Results Test Description Test Time Test Comments Text Results Atomic Results Result Comments CHEST 2 VIEWS 2018-12-02 15:05:00 [place] [address] Patient Name: JEFFRY GARNER MR #: [id number] : 1950 Age/Sex: 68/M Req #: [id number] [facility] Physician: Ordered by: MEEK RIVERA MD Report #: [id number] Location: OR Room/Bed: Procedure: [id number] DX/CHEST 2 VIEWS Exam Date: 12/02/18 Exam Time: 1340 REPORT STATUS: Signed EXAMINATION: CHEST 2 VIEWS INDICATION: Pre-op. COMPARISON: None FINDINGS: TUBES and LINES: None. LUNGS: Lungs are well inflated. There is no evidence of pneumonia or pulmonary edema. PLEURA: No pleural effusion or pneumothorax. HEART AND MEDIASTINUM: The cardiomediastinal silhouette is mildly enlarged. Tortuous thoracic aorta. BONES AND SOFT TISSUES: No acute osseous abnormality. UPPER ABDOMEN: No free air under the diaphragm. IMPRESSION: No acute radiographic abnormality. Signed by: Dr. Topher Chance MD on 12/02/2018 3:09 PM Dictated By: TOPHER CHANCE MD 150 Transcribed By: SUE on 12/02/18 1508 COPY TO: MEEK RIVERA MD
--- OUTSIDE RECORDS SUMMARY | 2018-12-03 05:59 | XMS REPORT | Summary of Care ---
Author Author [facility] Organization [facility] Address Unknown Phone Unavailable Encounter HQ Marva(FIN) [id number] Date(s): 07/01/17 - 07/01/17 [facility] [address] [place] [address]- [phone] Discharge Disposition: Home or Self Care Attending Physician: Haider Velarde MD Referring Physician: Haider Velarde MD Vital Signs No data available for this section Problem List Condition Effective Dates Status Health Status Informant Arthritis(Confirmed) Active Hearing Active decreased(Confirmed) Heartburn(Confirmed) Active Leukocytosis(Confirm Resolved ed) Anxiety and Active depression(Confirmed ) Sleep Active apnea(Confirmed) Allergies, Adverse Reactions, Alerts Substance Reaction Severity Status NKDA Active Medications No data available for this section Results No data available for this section [...]
[2018-12-03] MEDS ORDERED: CEFTRIAXONE SOD 1 GM/NS 50 ML 50 ML IV ONE (06:39)
[2018-12-03] MEDS: GENTAMICIN 80MG/NS 100 ML 200 ML IV ONE (06:49)
[2018-12-03] MEDS ORDERED: B&O 60MG R/S 60 MG SUPP PR ONE (07:41)
[2018-12-03] MEDS ORDERED: IOPAMIDOL 610MG/1ML 300 MG/ML VIAL IV ONE (07:41)
[2018-12-03] MEDS ORDERED: D5.45%NS/KCL 20MEQ 1,000 ML IV SCH (11:29)
[2018-12-03] MEDS ORDERED: DIPHENHYDRAMINE HCL 25 MG CAP PO PRN (11:30)
[2018-12-03] MEDS ORDERED: NALOXONE HCL INJ 0.4 MG/ML AMP IV PRN (11:30)
[2018-12-03] MEDS ORDERED: BELLADONNA/OPIUM 30 MG SUPP RC PRN (11:30)
[2018-12-03] MEDS ORDERED: CEFTRIAXONE SOD 1 GM VIAL IV SCH (11:30)
[2018-12-03] MEDS ORDERED: ONDANSETRON HCL INJ 2MG/ML 2ML 2 MG/ML VIAL IV PRN (11:30)
[2018-12-03] MEDS ORDERED: MORPHINE SULFATE 1 MG/ML 30ML PCA IV PRN (11:30)
[2018-12-03] MEDS ORDERED: FENTANYL CITRATE/PF 100MCG/2 ML INJ ONE ×2 (11:32→13:52)
--- NOTE | 2018-12-03 12:04 | NUR ---
RECEIVED REPORT FROM STACIA IN PACU AWAITING FOR PT TO ARRIVE TO UNIT
[2018-12-03 12:06] LABS: BASOPHILS % 0.3 % (0.0-1.0); EOSINOPHILS # (AUTO) 0.1 (0.0-0.4); EOSINOPHILS % 0.7 % (0.0-6.0); HEMATOCRIT 49.2 % (38.2-49.6); LYMPHOCYTES # (AUTO) 1.6 (1.0-3.2); LYMPHOCYTES % 10.9 % (18.0-39.1); MEAN CORPUSCULAR HEMOGLOBIN 27.4 pg (28-32); MEAN CORPUSCULAR HGB CONC 32.5 g/dL (31-35); MEAN CORPUSCULAR VOLUME 84.4 fL (81-99); MONOCYTES # (AUTO) 0.3 (0.2-0.8); MONOCYTES % 1.9 % (4.4-11.3); NEUTROPHILS # (AUTO) 12.8 (2.1-6.9); NEUTROPHILS % 85.7 % (38.7-80.0); PLATELET COUNT 205 x10e3/uL (140-360); RED BLOOD COUNT 5.83 x10e6/uL (4.3-5.7); RED CELL DISTRIBUTION WIDTH 13.9 % (11.7-14.4)
[2018-12-03 12:51] VITALS: BP 131/91
[2018-12-03 13:00] LABS: ANION GAP 9.8 mmol/L (8-16); BLOOD UREA NITROGEN 10 mg/dL (7-26); BUN/CREATININE RATIO 11 (6-25); CALCIUM 8.4 mg/dL (8.4-10.2); CARBON DIOXIDE 21 mmol/L (22-29); CHLORIDE 109 mmol/L (98-107); CREATININE, SERUM 0.94 mg/dL (0.72-1.25); EST GLOMERULAR FILTRATION RATE > 60 ML/MIN (60-); GLUCOSE 186 mg/dL (74-118); POTASSIUM 4.8 mmol/L (3.5-5.1); SODIUM 135 mmol/L (136-145)
[2018-12-03 13:05] VITALS: BP 131/91
--- NOTE | 2018-12-03 13:05 | NUR ---
RECEIVED PT TO FLOOR AA0X3. PT STATES PT AT THIS TIME IS TOLERABLE RATING IT 09/12 PT IS S/P TURP . BRASWELL IN PLACE DRAINING PINK/RED URINE INTO BRASWELL BAG BRASWELL CATH IS SECURED TO LEG ON TRACTION (PENILE AREA IS DRY) CBI CONNECTED IV FLUIDS TO THE RIGHT HAND 20 G WITH [id number] AT 125CC/HR ALONG WITH FLUIDS IS A ELECTRIC TOOL REPAIRER PUMP WITH MORPHINE. VERIFIED WITH GLADIS PALOMO AT BEDSIDE IV SITE IS CLEAN AND DRY PT IS ON REG DIET AND TRAY IS AT BEDSIDE. WILL CONTINUE TO MONITOR CLOSELY, SIDE RAILSX2, BED WHEELS LOCKED, CALL LIGHT IS WITHIN EASY REACH, INSTRUCTED TO CALL FOR ASSISTANCE IF NEEDED
[2018-12-03] MEDS: PHENAZOPYRIDINE HCL 100 MG TAB PO SCH ×2 (13:33→17:37)
[2018-12-03] MEDS ORDERED: MIDAZOLAM HCL 2 MG/2 ML VIAL ONE (13:52)
[2018-12-03] MEDS ORDERED: CEFTRIAXONE SOD 1 GM/NS 50 ML 50 ML IV SCH (14:00)
--- NOTE | 2018-12-03 15:25 | NUR ---
TELEMETRY CALLED PT HR DROPPED TO 38 DID NOT SUSTAIN, PT HR RATING IN THE 45-55 NOW. PT IS ASYMPTOMATIC AT THIS TIME STATES PAIN IS A 3/10 NOTIFIED MD NOEL. ORDERED TO DC COUNTER TACKER PUMP AT THIS TIME AND SEE HOW PT DOES WILL CONTINUE TO MONITOR CLOSELY
[2018-12-03] MEDS ORDERED: KETOROLAC TROMETHAMINE 30 MG/ML VIAL IV PRN (15:30)
[2018-12-03] MEDS ORDERED: HYDROCODONE/APAP 7.5MG-325MG 1 EA TAB PO PRN (15:30)
[2018-12-03 15:42] VITALS: BP 115/76
[2018-12-03] MEDS: DOCUSATE SODIUM 100 MG CAP PO SCH (16:51)
[2018-12-03] MEDS: ACETAMINOPHEN/CODEINE 300MG - 30MG TAB PO PRN ×2 (16:52→21:10)
[2018-12-03] MEDS ORDERED: KETOROLAC TROMETHAMINE 30 MG/ML VIAL ONE (17:53)
[2018-12-03] MEDS ORDERED: LIDOCAINE HCL 2% LOCAL INJ 5 ML SDV VIAL INJ ONE (17:53)
[2018-12-03] MEDS ORDERED: PROPOFOL IV EMULSION 10 MG/ML 20 ML VIAL ONE (17:53)
[2018-12-03] MEDS ORDERED: DEXAMETHASONE SOD PHOS INJ 4 MG/ML VIAL ONE (17:53)
[2018-12-03] MEDS ORDERED: ONDANSETRON HCL INJ 2MG/ML 2ML 2 MG/ML VIAL ONE (17:53)
[2018-12-03] MEDS ORDERED: SEVOFLURANE INHAL SOLN 250 ML PEN BTL ONE (17:53)
[2018-12-03 20:53] VITALS: BP 117/67
[2018-12-03 21:15] VITALS: BP 117/67
--- NOTE | 2018-12-03 21:31 | History and Physical ---
AIRCRAFT MAINTENANCE MANAGER: Dr. Thiago Khan. REASON FOR ADMISSION: Status post TURP procedures for urinary retention, enlarged prostate, and postoperative care. HISTORY OF PRESENT ILLNESS: The patient is a 68-year-old male status post TURP procedures. The patient had a TURP procedure done by Dr. Thiago Khan. The patient has enlarged prostate with urinary retention. He has cystoscopy, retrograde pyelogram, transurethral resection procedures. The patient is otherwise stable at this time. He is on IV antibiotic PERSONAL CARER. The patient is stable on fluids. No nausea or vomiting. He did have some flatus. The patient is stable at this time. PAST MEDICAL HISTORY: Osteoarthritic pain. Urinary retention. Hematuria. Enlarged prostate. PAST SURGICAL HISTORY: Status post TURP. SOCIAL HISTORY: The patient does not smoke or use alcohol. No recreational drugs. ALLERGIES: NO KNOWN ALLERGIES. HOME MEDICATIONS: List is reviewed. REVIEW OF SYSTEMS: Status post postoperative pain appropriate. PHYSICAL EXAMINATION: VITAL SIGNS: Temperature is 98, blood pressure is 131/91, pulse rate is 55, respirations 20. GENERAL: The patient is not in acute distress. He is awake. HEENT: Normocephalic, atraumatic. Anicteric. NECK: Supple grossly. PULMONARY: Clear. CARDIOVASCULAR: Regular rate and rhythm. ABDOMEN: Soft, status post TURP. Pickett catheter in place. Hematuria. Continuous urinary irrigation. NEUROLOGIC: No focal deficit. EXTREMITIES: No edema or cyanosis. LABORATORY DATA: Sodium is 135, potassium is 4.8, chloride is 109, bicarb is 21, BUN is 10, creatinine is 0.9, glucose is 185. WBC 14.9, hemoglobin 16, hematocrit 49, platelets 205. IMPRESSION: 1. Status post today transurethral resection of the prostate. Cystoscopy retrograde. 2. Slight elevation of blood sugar and leukocytosis. 3. Baseline osteoarthritis. PLAN: Continue postoperative care. IV fluids. Rocephin. PERSONAL CARER, patient-controlled analgesic treatment. Continue his urinary bladder irrigation with a Pickett catheter in place postop. MD ROLANDA Alexander/JESSICA /[id number]
--- NOTE | 2018-12-03 22:00 | NUR ---
Pickett care given.pink colored urine draining.pain voiced7/10.medicated with Tylenol#3.assessment done.no resp.distress.bed locked and in lowest position.phone and call light within reach.instructed to call for assistance as needed.
[2018-12-04] VITALS (7 sets, daily range): BP systolic 112–124; BP diastolic 60–74
--- NOTE | 2018-12-04 04:08 | NUR ---
Patient is having nausea and acid reflex.zofran 4mg iv given.notified to .ordered maalox 30ml q6h prn.
[2018-12-04] MEDS ORDERED: MAGNESIUM/ALUMINUM/SIMETHICONE 30 ML UDC PO PRN (04:15)
[2018-12-04] MEDS ORDERED: CEFTRIAXONE SOD 1 GM/NS 50 ML 50 ML IV SCH (06:00)
--- NOTE | 2018-12-04 07:00 | NUR ---
REPORT GIVEN TO THE ONCOMING RN.WALKING ROUNDS DONE.STABLE CONDITION.
--- NOTE | 2018-12-04 07:05 | NUR ---
PT RESTING IN BED AA0X3. PT STATES PT AT THIS TIME IS TOLERABLE RATING IT 09/12 PT IS S/P TURP YESTERDAY . BRASWE[place] IN PLACE DRAINING PINK/ORANGE URINE INTO [place] BAG BRAS[place] CATH IS SECURED TO LEG ON TRACTION (PENILE AREA IS DRY) CBI CONNECTED IV TO THE RIGHT HAND 20 G SL IV SITE IS CLEAN AND DRY WILL CONTINUE TO MONITOR CLOSELY, SIDE RAILSX2, BED WHEELS LOCKED, CALL LIGHT IS WITHIN EASY REACH, INSTRUCTED TO CALL FOR ASSISTANCE IF NEEDED
[2018-12-04] MEDS ORDERED: NEOMYCIN/POLYMYXIN/BACITRACIN 15 GM TUBE TOP PRN (07:45)
[2018-12-04] MEDS: PHENAZOPYRIDINE HCL 100 MG TAB PO SCH ×3 (08:36→17:32)
[2018-12-04] MEDS: DOCUSATE SODIUM 100 MG CAP PO SCH ×2 (08:37→16:34)
[2018-12-04 08:58] LABS: BASOPHILS # (AUTO) 0.1 (0.0-0.1); BASOPHILS % 0.4 % (0.0-1.0); EOSINOPHILS # (AUTO) 0.5 (0.0-0.4); EOSINOPHILS % 3.5 % (0.0-6.0); HEMATOCRIT 49.2 % (38.2-49.6); HEMOGLOBIN 15.9 g/dL (14.0-18.0); LYMPHOCYTES # (AUTO) 1.1 (1.0-3.2); LYMPHOCYTES % 7.3 % (18.0-39.1); MEAN CORPUSCULAR HGB CONC 32.3 g/dL (31-35); MEAN CORPUSCULAR VOLUME 83.5 fL (81-99); MONOCYTES % 6.5 % (4.4-11.3); NEUTROPHILS # (AUTO) 12.2 (2.1-6.9); NEUTROPHILS % 81.6 % (38.7-80.0); PLATELET COUNT 223 x10e3/uL (140-360); RED BLOOD COUNT 5.89 x10e6/uL (4.3-5.7)
[2018-12-04 09:17] LABS: ANION GAP 10.9 mmol/L (8-16); BLOOD UREA NITROGEN 10 mg/dL (7-26); BUN/CREATININE RATIO 10 (6-25); CALCIUM 8.7 mg/dL (8.4-10.2); CARBON DIOXIDE 23 mmol/L (22-29); CHLORIDE 105 mmol/L (98-107); CREATININE, SERUM 1.02 mg/dL (0.72-1.25); EST GLOMERULAR FILTRATION RATE > 60 ML/MIN (60-); GLUCOSE 175 mg/dL (74-118); POTASSIUM 3.9 mmol/L (3.5-5.1); SODIUM 135 mmol/L (136-145)
[2018-12-04] MEDS: FAMOTIDINE 20 MG TAB PO SCH ×2 (09:29→17:32)
--- NOTE | 2018-12-04 09:56 | NUR ---
Met with patient and notified him that he is inpatient status now. Explained IMM letter and he verbalized understanding and singed. Copy given to patient, and original placed in chart.
[2018-12-04] MEDS: ACETAMINOPHEN/CODEINE 300MG - 30MG TAB PO PRN (13:07)
[2018-12-05 00:02] VITALS: BP 107/65
[2018-12-05 04:00] VITALS: BP 135/84
--- NOTE | 2018-12-05 07:10 | NUR ---
PT RESTING IN BED AA0X3. PT STATES PT AT THIS TIME IS TOLERABLE RATING IT 09/12 PT IS S/P TURP . BRASWELL IN PLACE DRAINING ORANGE URINE INTO [place] BAG BRASWELL CATH IS SECURED TO LEG (PENILE AREA IS DRY) CBI CONNECTED IV TO THE RIGHT HAND 20 G SL IV SITE IS CLEAN AND DRY WILL CONTINUE TO MONITOR CLOSELY, SIDE RAILSX2, BED WHEELS LOCKED, CALL LIGHT IS WITHIN EASY REACH, INSTRUCTED TO CALL FOR ASSISTANCE IF NEEDED
[2018-12-05 08:02] VITALS: BP 128/77
[2018-12-05 08:15] LABS: BASOPHILS # (AUTO) 0.1 (0.0-0.1); BASOPHILS % 0.4 % (0.0-1.0); EOSINOPHILS # (AUTO) 0.6 (0.0-0.4); EOSINOPHILS % 4.9 % (0.0-6.0); HEMATOCRIT 51.1 % (38.2-49.6); HEMOGLOBIN 16.4 g/dL (14.0-18.0); LYMPHOCYTES # (AUTO) 1.4 (1.0-3.2); LYMPHOCYTES % 11.6 % (18.0-39.1); MEAN CORPUSCULAR HEMOGLOBIN 26.8 pg (28-32); MEAN CORPUSCULAR HGB CONC 32.1 g/dL (31-35); MEAN CORPUSCULAR VOLUME 83.4 fL (81-99); MONOCYTES # (AUTO) 1.2 (0.2-0.8); MONOCYTES % 9.9 % (4.4-11.3); NEUTROPHILS # (AUTO) 8.8 (2.1-6.9); NEUTROPHILS % 72.9 % (38.7-80.0); PLATELET COUNT 230 x10e3/uL (140-360); RED BLOOD COUNT 6.13 x10e6/uL (4.3-5.7)
[2018-12-05 08:24] LABS: BLOOD UREA NITROGEN 11 mg/dL (7-26); BUN/CREATININE RATIO 12 (6-25); CALCIUM 8.9 mg/dL (8.4-10.2); CARBON DIOXIDE 26 mmol/L (22-29); CHLORIDE 101 mmol/L (98-107); CREATININE, SERUM 0.93 mg/dL (0.72-1.25); EST GLOMERULAR FILTRATION RATE > 60 ML/MIN (60-); GLUCOSE 107 mg/dL (74-118); SODIUM 135 mmol/L (136-145)
[2018-12-05 08:49] VITALS: BP 128/77
[2018-12-05] MEDS: FAMOTIDINE 20 MG TAB PO SCH ×2 (08:49→16:46)
[2018-12-05] MEDS: PHENAZOPYRIDINE HCL 100 MG TAB PO SCH ×3 (08:49→16:46)
[2018-12-05] MEDS: DOCUSATE SODIUM 100 MG CAP PO SCH ×2 (08:49→16:46)
[2018-12-05 12:12] VITALS: BP 112/63
--- NOTE | 2018-12-05 15:22 | NUR ---
sarika brooks per md jordan sullivan urines started
[2018-12-05 16:36] VITALS: BP 131/82
[2018-12-05] MEDS ORDERED: TYLENOL # 31 EA PO (17:35)
[2018-12-05] MEDS ORDERED: COLACE100 MG PO (17:36)
[2018-12-05] MEDS ORDERED: LEVAQUIN500 MG PO (17:36)
--- NOTE | 2018-12-05 18:52 | NUR ---
SPOKE WITH MD RIVERA ABOUT PT 4 POST VOIDS , CLEARED DC DISCHARGE INSTRUCTIONS GIVEN NAD PRESCRIPTIONS, IV DC PRESSURE DRESSING APPLIED AND TAPED. PT VERBALIZED UNDERSTANDING PT IS NOW OFF UNIT TO HOME
--- NOTE | 2019-01-17 05:02 | Operative Report ---
DATE OF PROCEDURE: 12/03/2018 SURGEON: Thiago Khan MD PREOPERATIVE DIAGNOSES: 1. Obstructive benign prostatic hyperplasia. 2. Hematuria. POSTOPERATIVE DIAGNOSES: 1. Obstructive benign prostatic hyperplasia. 2. Hematuria. 3. Urethral stricture disease at the fossa navicularis. OPERATIONS PERFORMED: 1. Cystourethroscopy with calibration and dilation of urethral stricture disease (separate procedure performed for the distal urethral stricture disease). 2. Cystourethroscopy with bilateral ureteral catheterization and retrograde ureteropyelography (separate procedure performed for the hematuria). 3. Interpretation of retrograde ureteropyelography. 4. Supervision of fluoroscopy, no radiologist present. 5. Cystourethroscopy with transurethral resection of the prostate utilizing the plasma button electrode. ANESTHESIA: General. COMPLICATIONS: None. CLINICAL SUMMARY: Regis De Luna is a 68-year-old man, who nine years ago, underwent photoselective vaporization of the prostate with a GreenLight laser. The patient has had recurrent obstructive symptomatology and elected to proceed with surgery as planned. He is aware of the risks of bleeding, infection, injury to adjacent structures, need for additional procedures and elected to proceed. OPERATIVE PROCEDURE IN DETAIL: Informed consent was verified. Reigs De Luna was properly identified, taken to the operating room, placed on the cystoscopy table in supine position. Anesthesia was uneventfully begun. The patient was then carefully gently repositioned in dorsal lithotomy position with all pressure points well padded. His genitalia were prepared and draped in usual sterile fashion. The 22.5-Uruguayan cystoscope sheath with obturator in place was inserted into the patient's urethral meatus, but it could not be advanced past the fossa navicularis stricture. We then calibrated the stricture to approximately 14 to 16-Uruguayan in size and dilated progressively to 30-Uruguayan in size using female sounds. We then were able to negotiate the cystoscope sheath down the otherwise unremarkable urethra through the sphincteric region and through the prostate bed, which was significant for being open at the ileal level of the bladder neck with excellent re-epithelialization, but there was residual bilobar prostatic hypertrophy with kissing lateral lobes most notably distally. There was also some anterior tissue that was collapsing and obstruct. I went to the patient's bladder and drained it. Panendoscopy of the bladder revealed trabeculations, but no tumors, no stones, and no diverticula. Normally positioned configured ureteral orifices were identified. An 8-Uruguayan catheter was used to cannulate each ureter and retrograde ureteropyelogram was performed. Interpretation of retrograde ureteropyelography contrast was instilled in retrograde fashion bilaterally. Within the bladder that was opacified, we can see prostatic tissue encroaching on the bladder base with a filling defect in the middle from prior transurethral resection procedure, but there was definitely obstructive BPH in the cystographic examination. There was tortuosity of both ureters. However, the left ureter exhibited into spasm or stricture several centimeters proximal to the ureteral orifice. Nevertheless, there was unobstructed drainage observed bilaterally fluoroscopically. There were no suspicious lesions and there were no stones. The cystoscope was withdrawn. The resectoscope sheath with obturator was atraumatically placed. The patient then underwent a transurethral resection of the prostate with the plasma button electrode from the bladder neck to maneuver past the verumontanum and down the surgical capsule. Pinpoint electrocautery was utilized to achieve hemostasis. The resectoscope was withdrawn. Pickett catheter was placed. It was irrigated to and fro to ensure it worked properly. It was placed in a continuous bladder irrigation. A belladonna and opium suppository were placed revealing a prostate that was larger and 50 g, it was smooth, nonfluctuant without any nodules. The patient was then uneventfully reversed from anesthesia and taken to recovery room in stable condition. There were no complications to the procedure. He tolerated the procedure well. We will plan on routine postoperative care and ongoing urological followup. Thiago Khan MD [place]/JESSICA /[id number]
[2019-01-25] MEDS ORDERED: LIDOCAINE JELLY 2% 10ML URO-JET TOP ONE (03:00)
== END 2018-12-05 18:52 | disposition home health service (06) | DRG 713 ==
LOC: OR 05:52 → PACU V 11:31 → OBSVTOIN 11:31 → MED/SURG 12:06
PROVIDERS: ADMIT Internal Medicine; ATTEND Internal Medicine
PROC: 0T7D8ZZ Dilation of Urethra, Via Natural or Artificial Opening Endoscopic (ICD-10-PCS; 2018-12-03)
PROC: BT141ZZ Fluoroscopy of Kidneys, Ureters and Bladder using Low Osmolar Contrast (ICD-10-PCS; 2018-12-03)
PROC: 0VB08ZZ Excision of Prostate, Via Natural or Artificial Opening Endoscopic (ICD-10-PCS; principal; 2018-12-03 08:00)
PROC: 0T788DZ Dilation of Bilateral Ureters with Intraluminal Device, Via Natural or Artificial Opening Endoscopic (ICD-10-PCS; 2018-12-03 08:00)
DX: N40.1 Benign prostatic hyperplasia with lower urinary tract symptoms (principal); N13.8 Other obstructive and reflux uropathy; E87.1 Hypo-osmolality and hyponatremia; R33.8 Other retention of urine; N35.919 Unspecified urethral stricture, male, unspecified site; R31.9 Hematuria, unspecified; E66.9 Obesity, unspecified; Z68.32 Body mass index [BMI] 32.0-32.9, adult; M19.90 Unspecified osteoarthritis, unspecified site; R73.9 Hyperglycemia, unspecified
CPT/HCPCS: 36415; 71046; 74420; 80048; 83735; 85025; 93005; J0696; J1100; J1580; J1885; J2001; J2250; J2270; J2405; J3010

== ENCOUNTER 2019-01-25 02:42 | Emergency (ER) | payer MEDICARE ==
[~2019-01-25] VITALS: Ht 182.9 cm; Wt 107.0 kg
[~2019-01-25 02:42] MED LIST changes: +COLACE100 MG PO; +LEVAQUIN500 MG PO; +TYLENOL # 31 EA PO
--- OUTSIDE RECORDS SUMMARY | 2019-01-25 02:45 | XMS REPORT | Continuity of Care Document ---
Author Author [employer] Address Unknown Phone Unavailable Care Team Providers Care Clinical Laboratory Assistant Name Role Phone Office Max Information Groupspeak Unavailable Unavailable Problems Problem Status Onset Date Classification Date Reported Comments Source R12, K29.00, K22.0 Active 06/24/2017 [facility] UNK Active 03/26/2017 [facility] COUGH/ FEVER Active 10/16/2015 [facility] PNEUMONIA Active 10/16/2015 [facility] 483 - PNEUMONIA: ORGA Active 12/19/2013 [facility] [place] Arthritis Active Problem 07/04/2017 [facility] Hearing decreased Active Problem 07/04/2017 [facility] Heartburn Active Problem 07/04/2017 [facility] Leukocytosis Resolved Problem 07/04/2017 [facility] Anxiety and depression Active Problem 07/04/2017 [facility] Sleep apnea Active Problem 07/04/2017 [facility] PNEUMONIA, UNSPECIFIED ORGANISM Active [facility] DYSPHAGIA, UNSPECIFIED Active [facility] FUNCTIONAL DYSPEPSIA Active [facility] CANDIDAL ESOPHAGITIS Active [facility] HEARTBURN Active [facility] ACUTE GASTRITIS WITHOUT BLEEDING Active [facility] ACHALASIA OF CARDIA Active [facility] Medications Medication Details Route Status Patient Instructions Ordering Provider Order Date Source Albuterol 0.833 MG/ML / Ipratropium [place]wood 0.167 MG/ML Inhalant Solution 3 mL, Route: NEB, Drug Form: SOLN, Dosing Weight 113.636, kg, ONCE, STAT, Start date: 04/09/17 6:36:00 CDT, Stop date: 04/09/17 6:36:00 CDTNotes: (Same as: Thelma) Inactive 04/09/2017 [facility] sodium chloride 0.9% 500 ml INJ 500 mL 500 mL, Rate: 25 ml/hr, Infuse over: 20 hr, Route: IV, Dosing Weight 113.636 kg, Total Volume: 500, Start date: 04/09/17 6:36:00 CDT, Duration: 30 day, Stop date: 05/09/17 6:35:00 CDT Inactive 04/09/2017 [facility] Aleve 220 mg, PO, as needed, 0 Refill(s) Active 04/07/2017 [facility] Advil PO, as needed Active 04/07/2017 [facility] Amoxicillin 875 MG / Clavulanate 125 MG Oral Tablet [Augmentin 875-mg] 875 mg=1 tab, PO, Q12H, X 7 day, # 14 tab, 0 Refill(s) Active 10/19/2015 [facility] pantoprazole 40 MG Granules [Protonix] =1 Pack, PO, Daily, # 30 ea, 0 Refill(s) Active 10/19/2015 [facility] Sucralfate 100 MG/ML Oral Suspension 1 gm=10 ml, PO, Before Meals & Bedtime, # 200 ml, 1 Refill(s) Active 10/19/2015 [facility] PLease do not give Vanco prior to trough is collected PLease do not give Vanco prior to trough is collected, Reminder, Drug form: MISC, Route: MISC, ONCE, 10/18/15 17:00:00 CDT, Stop date: 10/18/15 17:00:00 CDT Inactive 10/18/2015 [facility] Protonix 40 mg, Route: IVP, Drug form: INJ, BID, Dosing Weight 113.636, kg, Start date: 10/18/15 9:00:00 CDT, Duration: 30 day, Stop date: 11/16/15 17:00:00 CDTNotes: For IV push reconstitute with 10 ml 0.9% sod ium chloride and push over 2 minutes. (Same as: Protonix) No Longer Active 10/18/2015 [facility] Sucralfate 100 MG/ML Oral Suspension [Carafate] [...] (Same As: Carafate) No Longer Active 10/18/2015 [facility] Sodium Chloride 0.154 MEQ/ML Injectable Solution 1,000 mL, Rate: 25 ml/hr, Infuse over: 40 hr, Route: IV, Dosing Weight 113.636 kg, Total Volume: 1,000, Start date: 10/18/15 8:11:00 CDT, Duration: 30 day, Stop date: 11/17/15 8:10:00 CDT No Longer Active 10/18/2015 [facility] Reglan 10 mg, 2 mL, Route: IVP, Drug form: INJ, Q6H, Dosing Weight 113.636, kg, Start date: 10/18/15 0:00:00 CDT, Duration: 30 day, Stop date: 11/16/15 18:00:00 CDTNotes: (Same as: Reglan) No Longer Active 10/18/2015 [facility] meropenem 500 mg, Route: IV, Q6Hnow, Dosing Weight 113.636, kg, Start date: 10/16/15 16:00:00 CDT, Duration: 30 day, Stop date: 11/15/15 14:00:00 CDTNotes: Same as Merrem MEDICATION WASTE Product Size: 500 mg Product Wasted: ___ mg No Longer Active 10/16/2015 [facility] Ondansetron 4 mg, 2 mL, Route: IVP, Drug form: INJ, Q6H, Dosing Weight 113.636, kg, PRN Nausea & Vomiting, Start date: 10/16/15 14:01:00 CDT, Duration: 30 day, Stop date: 11/15/15 14:00:00 CDTNotes: (Same as: Herb) MEDICATION WASTE Product Size: 4 mg Product Wasted: ___ mg No Longer Active 10/16/2015 [facility] Sodium Chloride 0.154 MEQ/ML Injectable Solution 1,000 mL, Rate: 75 ml/hr, Infuse over: 13.3 hr, Route: IV, Dosing Weight 113.636 kg, Total Volume: 1,000, Start date: 10/16/15 14:01:00 CDT, Duration: 30 day, Stop date: 11/15/15 14:00:00 CDT No Longer Active 10/16/2015 [facility] Acetaminophen 650 mg, 2 tab, Route: PO, Drug form: TAB, Q4H, Dosing Weight 113.636, kg, PRN Pain 1-3/Temp > 100.4 F, Start date: 10/16/15 14:01:00 CDT, Duration: 30 day, Stop date: 11/15/15 14:00:00 CDTNotes: Do not exceed 4 gm/day. (Same as: Tylenol) No Longer Active 10/16/2015 [facility] Saline Flush 0.9% 10 ml, Route: IVP, Drug Form: INJ, Dosing Weight 113.636, kg, PRN, PRN Line Flush, Start date: 10/16/15 14:01:00 CDT, Duration: 30 day, Stop date: 11/15/15 14:00:00 CDTNotes: (Same as: BD Posiflush) No Longer Active 10/16/2015 [facility] Vancomycin 1 gm, Route: IVPB, [id number], Dosing Weight 113.636, kg, Priority: STAT, Start date: 10/16/15 14:01:00 CDT, Duration: 30 day, Stop date: 11/15/15 6:00:00 CDTNotes: TIME CRITICAL MEDICATION (Same As: Vancocin) Infusion rate 2001 mg: infuse over 2.5 hours MEDICATION WASTE Product Size: 1000 mg Product Wasted: ___ mg No Longer Active 10/16/2015 [facility] Saline Flush 0.9% 10 mL, Route: IVP, Drug Form: INJ, Dosing Weight 113.636, kg, PRN, PRN Line Flush, Start date: 10/16/15 10:22:00 CDT, Duration: 30 day, Stop date: 11/15/15 10:21:00 CDTNotes: Same as: BD Posiflush Sterile Inactive 10/16/2015 [facility] Allergies, Adverse Reactions, Alerts No Known Medication Allergies Immunizations No Data Provided for This Section Results Order Name Results Value Reference Range Date Interpretation Comments Source HEMATOLOGY MCV 82.9 80.0 - 94.0 10/19/2015 [facility] HEMATOLOGY Hgb 14.7 14.0 - 18.0 10/19/2015 [facility] HEMATOLOGY Hct 46.2 42.0 - 54.0 10/19/2015 [facility] HEMATOLOGY RBC 5.58 4.70 - 6.10 10/19/2015 [facility] HEMATOLOGY WBC 11.4 3.7 - 10.4 10/19/2015 [facility] HEMATOLOGY Platelet 218 133 - 450 10/19/2015 [facility] HEMATOLOGY MPV 7.8 7.4 - 10.4 10/19/2015 [facility] HEMATOLOGY RDW 14.8 11.5 - 14.5 10/19/2015 [facility] HEMATOLOGY MCH 26.3 27.0 - 31.0 10/19/2015 [facility] HEMATOLOGY MCHC 31.8 32.0 - 36.0 10/19/2015 [facility] HEMATOLOGY Basophils # 0.1 0.0 - 0.2 10/19/2015 [facility] HEMATOLOGY Monocytes # 0.9 0.0 - 0.8 10/19/2015 [facility] HEMATOLOGY Lymphocytes # 2.1 1.0 - 5.5 10/19/2015 [facility] HEMATOLOGY Eosinophils # 0.3 0.0 - 0.5 10/19/2015 [facility] HEMATOLOGY Segs 70.8 45.0 - 75.0 10/19/2015 [facility] HEMATOLOGY Lymphocytes 18.5 20.0 - 40.0 10/19/2015 [facility] HEMATOLOGY Segs-Bands # 8.1 1.5 - 8.1 10/19/2015 [facility] HEMATOLOGY Basophils 0.6 0.0 - 1.0 10/19/2015 [facility] HEMATOLOGY Monocytes 7.5 2.0 - 12.0 10/19/2015 [facility] HEMATOLOGY Eosinophils 2.6 0.0 - 4.0 10/19/2015 [facility] TOXICOLOGY Vanco Tr 8.3 10/18/2015 [facility] TOXICOLOGY Vanco Tr TND 1800 10/18/2015 [facility] CHEM PANEL Procalcitonin Lvl 0.66 0.00 - 0.10 10/16/2015 [facility] VIRAL - SEROLOGY Influ A Negative (10/16/15 12:18 PM) Negative 10/16/2015 [facility] VIRAL - SEROLOGY Influ B Negative (10/16/15 12:18 PM) Negative 10/16/2015 [facility] CARDIAC ENZYMES CK MB Index 0.9 0.0 - 2.5 10/16/2015 [facility] CARDIAC ENZYMES CK MB 0.5 0.5 - 3.6 10/16/2015 [facility] CARDIAC ENZYMES Troponin-I <0.02 0.00 - 0.40 10/16/2015 [facility] CARDIAC ENZYMES BNP 24 <=100 pg/mL 10/16/2015 [facility] CARDIAC ENZYMES Total CK 56 12 - 191 10/16/2015 [facility] ELECTROLYTES Potassium Lvl 4.1 3.5 - 5.1 10/16/2015 [facility] ELECTROLYTES Sodium Lvl 137 135 - 145 10/16/2015 [facility] ELECTROLYTES Chloride Lvl 107 95 - 109 10/16/2015 [facility] ELECTROLYTES Calcium Lvl 8.8 8.5 - 10.5 10/16/2015 [facility] ELECTROLYTES AGAP 9.1 10.0 - 20.0 10/16/2015 [facility] ELECTROLYTES CO2 25 24 - 32 10/16/2015 [facility] ELECTROLYTES Creatinine Lvl 1.03 0.50 - 1.40 10/16/2015 [facility] ELECTROLYTES Glucose Lvl 107 70 - 99 10/16/2015 [facility] ELECTROLYTES BUN 15 7 - 22 10/16/2015 [facility] ELECTROLYTES eGFR 76 10/16/2015 Result Comment: The eGFR is calculated [...] should be multiplied by the estimated BMI. [facility] HEMATOLOGY Plt Morph Normal (10/16/15 10:58 AM) 10/16/2015 [facility] HEMATOLOGY RBC Morph Normal (10/16/15 10:58 AM) 10/16/2015 [facility] HEMATOLOGY Basophils 0.4 0.0 - 1.0 10/16/2015 [facility] HEMATOLOGY Segs-Bands # 21.6 1.5 - 8.1 10/16/2015 [facility] HEMATOLOGY Lymphocytes # 1.1 1.0 - 5.5 10/16/2015 [facility] HEMATOLOGY Monocytes # 1.1 0.0 - 0.8 10/16/2015 [facility] HEMATOLOGY Eosinophils # 0.1 0.0 - 0.5 10/16/2015 [facility] Basophils # 0.1 0.0 - 0.2 10/16/2015 [facility] Eosinophils 0.6 0.0 - 4.0 10/16/2015 [facility] Monocytes 4.7 2.0 - 12.0 10/16/2015 [facility] Segs 89.5 45.0 - 75.0 10/16/2015 [facility] Lymphocytes 4.8 20.0 - 40.0 10/16/2015 [facility] Platelet 206 133 - 450 10/16/2015 [facility] RDW 14.7 11.5 - 14.5 10/16/2015 [facility] MPV 7.5 7.4 - 10.4 10/16/2015 [facility] Hgb 15.5 14.0 - 18.0 10/16/2015 [facility] RBC 5.88 4.70 - 6.10 10/16/2015 [facility] MCV 82.5 80.0 - 94.0 10/16/2015 [facility] Hct 48.5 42.0 - 54.0 10/16/2015 [facility] MCHC 31.9 32.0 - 36.0 10/16/2015 [facility] MCH 26.3 27.0 - 31.0 10/16/2015 [facility] WBC 24.0 3.7 - 10.4 10/16/2015 [facility] Pathology Reports No Data Provided for This Section Diagnostic Reports Report Value Date Source Stomach emptying NM Patient Name: JEFFRY GARNER : 1950; Age: 67 years Male MR: [id number] Study: Stomach emptying NM 07/01/2017 9:15 AM 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 SL: [id number] 07/01/2017 [facility] Abdomen/Pelvis w IV contrast CT Patient Name: JEFFRY GARNER : 1950; Age: 65 years y/o Male MR: [id number] * I. COMPUTED TOMOGRAPHY SCAN OF THE [...] prior chest computed tomography scan of 10/16/2015. : [id number] 10/18/2015 [facility] wo contrast CT CT CHEST WITHOUT CONTRAST: [...] due to aspiration would be a consideration. [id number] 10/16/2015 [facility] 2 views DX Chest 2 views DX [...] are interstitial pneumonia versus interstitial pneumonitis SL: [id number] 10/16/2015 [facility] Chest 2 views CHEST RADIOGRAPHY CLINICAL HISTORY: Shortness of breath. COMPARISON IMAGING: None. FINDINGS: Two views of the chest were acquired and submitted for evaluation. No pleural fluid is identified. The contour of the cardiac silhouette is within normal limits. There is no significant pulmonary consolidation or nodularity. Bones are unremarkable. IMPRESSION: No significant abnormality. 12/19/2013 EDILBERTO Figueroa Consultation Notes No Data Provided for This Section Discharge Summaries No Data Provided for This Section History and Physicals No Data Provided for This Section Vital Signs Vital Sign Value Date Comments Source Systolic (mm Hg) 134 04/15/2017 [facility] Diastolic (mm Hg) 79 04/15/2017 [facility] Respitory Rate 18 04/15/2017 [facility] Systolic (mm Hg) 128 04/09/2017 [facility] Diastolic (mm Hg) 88 04/09/2017 [facility] Respitory Rate 20 04/09/2017 [facility] Systolic (mm Hg) 115 04/09/2017 [facility] Diastolic (mm Hg) 86 04/09/2017 [facility] Respitory Rate 21 04/09/2017 [facility] Systolic (mm Hg) 122 04/09/2017 [facility] Diastolic (mm Hg) 81 04/09/2017 [facility] Respitory Rate 20 04/09/2017 [facility] Temperature Oral (F) 98.3 F 04/07/2017 [facility] Heart Rate 79 04/07/2017 [facility] BMI Calculated 33.98 04/07/2017 [facility] Height 182.88 cm 04/07/2017 [facility] Weight 113.636 04/07/2017 [facility] Systolic (mm Hg) 103 10/19/2015 [facility] Diastolic (mm Hg) 69 10/19/2015 [facility] Temperature Oral (F) 98.1 F 10/19/2015 [facility] Heart Rate 66 10/19/2015 [facility] Respitory Rate 18 10/19/2015 [facility] Systolic (mm Hg) 96 10/19/2015 [facility] Diastolic (mm Hg) 57 10/19/2015 [facility] Respitory Rate 18 10/19/2015 [facility] Temperature Oral (F) 98.2 F 10/19/2015 [facility] Heart Rate 67 10/19/2015 [facility] Systolic (mm Hg) 109 10/19/2015 [facility] Diastolic (mm Hg) 67 10/19/2015 [facility] Respitory Rate 16 10/19/2015 [facility] Heart Rate 66 10/19/2015 [facility] Temperature Oral (F) 98.1 F 10/19/2015 [facility] Weight 113.636 10/16/2015 [facility] BMI Calculated 33.98 10/16/2015 [facility] Height 182.88 cm 10/16/2015 [facility] BMI Calculated 33.98 10/16/2015 [facility] Height 182.88 cm 10/16/2015 [facility] Weight 113.636 10/16/2015 [facility] Encounters Location Location Details Encounter Type Encounter Number Reason For Visit Attending Provider ADM Date DC Date Status Source [facility] Outpatient [facility] Outpt Diag Services [id number] Rian Reeder 12/19/2013 12/20/2013 [facility] Inpatient [id number] Florentino Hernandez 10/16/2015 10/19/2015 [facility] Bedded Outpatient [id number] [facility] [place] 04/09/2017 04/09/2017 [facility] Bedded Outpatient [id number] [facility] [place] 04/15/2017 04/15/2017 [facility] Outpatient [id number] Haider Velarde 07/01/2017 07/02/2017 [facility] Procedures Procedure Code Date Perfomer Comments Source Hernia repair [id number] 07/06/1998 [facility] Cystoscopy [id number] [facility] Ligament repair [id number] [facility] Assessment and Plan Assessment and Plan Date Source Extracted from:Title: Clinical Document Author: Haider Velarde MD Date: 10/19/15 Progress Note - Daily [facility] [place] [place] Completed: Oct, 08:30 by Haider Velarde MD RM: 336 - 2W, SE [id number] MOORE 65y (: 1950) M Attending: Florentino Hernandez MD Service: Pulmonary Service Reason for Admission: PNEUMONIA Working DRG: Simple pneumonia and pleurisy w/o CC/MCFP Code status: Full Code [Ordered] Current diet: Isolation: None Documented Allergies: NKDA SUBJECTIVE Doing well No vomitting Mild nausea 24hr Labs 10/18 0430 WBC 11.4 H RBC 5.58 Hgb 14.7 Hct 46.2 MCV 82.9 MCH 26.3 L MCHC 31.8 L RDW 14.8 H Platelet 218 MPV 7.8 Segs 70.8 Monocytes 7.5 Lymphocytes 18.5 L Eosinophils 2.6 Basophils 0.6 Segs-Bands # 8.1 Lymphocytes # 2.1 Monocytes # 0.9 H Eosinophils # 0.3 Basophils # 0.1 10/17 1721 Vanco Tr TND 1800 Vanco Tr 8.3 Pickett still necessary (Yes/No): Line still necessary (Yes/No): Vitals Tmp(F) Pulse BP RR SpO2 FIO2 10/18 07:00 98.1 66 109/67 16 95 --- 10/18 04:00 97.7 65 104/60 16 95 --- 10/18 00:00 98.3 60 107/63 16 95 --- 10/17 20:00 98.3 74 114/75 16 94 --- 10/17 15:59 98.2 58 133/75 16 95 --- 24 Hr Tmax: 98.3F (36.83c) at 10/18 00:00 Vital Signs are the last 5 in the past 48 hours. Date Wt(kg) Wt(lb) Ht(cm) Ht(in) Method 10/15 (initial) 113.64 250.00 Estimated 10/15 182.88 72.00 Stated I&O Record In Out Bal 10/17 24hr Tot 3770 0 3770 10/16 24hr Tot 1998 0 1998 Medications (11) Active Scheduled Meds (5): 10/16/15 meropenem + Sodium Chloride 0.9% IV 100 mL 500 mg IV Q6Hnow 33.33 ml/hr 10/18/15 metoclopramide (Reglan) 10 mg IVP Q6H 10/18/15 pantoprazole (Protonix) 40 mg IVP BID 10/18/15 sucralfate (Carafate 1 g/10 mL oral suspension) 1 gm PO QID 10/16/15 vancomycin + Sodium Chloride 0.9% IV 250 mL 1 gm IVPB [id number] 250 ml/hr Unscheduled Meds: None PRN Meds [...] approach myotomy as oupt. d/w and pt. 10/19/2015 [facility] Plan of Care No Data Provided for This Section Social History Social History Date Source Social History TypeResponse Smoking Status Never smoker; Exposure to Tobacco Smoke None; Cigarette Smoking Last 365 Days No; Reg Smoking Cessation Counseling No 04/15/2017 [facility] Family History No Data Provided for This Section Advance Directives No Data Provided for This Section Functional Status No Data Provided for This Section
[2019-01-25] MEDS ORDERED: LIDOCAINE JELLY 2% 10ML URO-JET ONE (03:06)
--- NOTE | 2019-01-25 03:15 | NUR ---
DR RIVERA CALLED TO INFORM THAT PATIENT ARRIVED C COMPLAINTS OF URINARY RETENTION. ORDERS RECEIVED. UROJECT INJECTED DIRECTED INTO PENIS PRIOR TO INSERTION OF CATHETER PER ORDERS. 22FR COUDE CATHETER INSERTED USING STERILE TECHNIQUE, CATHETER INSERTED TO HUB PRIOR TO INFLATION OF BALLOON. 550CC ORANGE SLIGHTLY CLOUDY URINE RETURN NOTED. NO BLOOD CLOTS NOTED. DR HOFFMAN INFORMED. CATHETER CONNECTED TO LEG BAG. PT INSTRUCTED ON CATHETER CARE AND THAT MD INSTRUCTED THAT PT REMOVE CATHETER AT HOME ON 01/31. PT ALSO INSTRUCTED TO KEEP SCHEDULED APPOINTMENT WITH DR RIVERA.
[2019-01-25 03:29] LABS: BILIRUBIN,URINE NEGATIVE (NEGATIVE); CLARITY,URINE CLOUDY (CLEAR); COLOR,URINE ORANGE (YELLOW); KETONES,URINE NEGATIVE (NEGATIVE); LEUKOCYTE ESTERASE ,URINE SMALL (NEGATIVE); NITRITE,URINE POSITIVE (NEGATIVE); PROTEIN,URINE DIPSTICK 2+ (NEGATIVE); URINE UROBILINOGEN 1 mg/dL (0.2 - 1)
[2019-01-25 03:43] LABS: BACTERIA,URINE MODERATE /HPF; EPITHELIAL CELLS,URINE FEW /LPF; RBC,URINE >50 /HPF (0-5); WBC,URINE (MAN) 21-50 /HPF (0-5)
[2019-01-25] MEDS ORDERED: LIDOCAINE JELLY 2% 10ML URO-JET TOP ONE (04:00)
[2019-01-25 04:03] VITALS: BP 121/82
== END 2019-01-25 04:05 | disposition home or self-care (01) ==
LOC: ER 02:42
DX: R33.9 Retention of urine, unspecified (principal); R31.9 Hematuria, unspecified; N40.1 Benign prostatic hyperplasia with lower urinary tract symptoms
CPT/HCPCS: 51700; 81001; 87086; 99282

== ENCOUNTER 2019-02-01 05:27 | Emergency (ER) | payer MEDICARE ==
[~2019-02-01] VITALS: Ht 182.9 cm; Wt 107.0 kg
--- OUTSIDE RECORDS SUMMARY | 2019-02-01 05:31 | XMS REPORT | Continuity of Care Document ---
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 Role Phone [employer] Information [employer] Unavailable Unavailable Problems Problem Status Onset Date Classification Date Reported Comments Source R12, K29.00, K22.0 Active 06/24/2017 [facility] UNK Active 03/26/2017 [facility] COUGH/ FEVER Active 10/16/2015 [facility] PNEUMONIA Active 10/16/2015 [facility] 483 - PNEUMONIA: ORGA Active 12/19/2013 [facility] [place] Arthritis Active Problem 07/04/2017 [facility] Hearing decreased Active Problem 07/04/2017 [facility] Heartburn Active Problem 07/04/2017 [facility] Leukocytosis Resolved Problem 07/04/2017 [facility] Anxiety and depression Active Problem 07/04/2017 [facility] Sleep apnea Active Problem 07/04/2017 [facility] PNEUMONIA, UNSPECIFIED ORGANISM Active [facility] DYSPHAGIA, UNSPECIFIED Active [facility] FUNCTIONAL DYSPEPSIA Active [facility] CANDIDAL ESOPHAGITIS Active [facility] HEARTBURN Active [facility] ACUTE GASTRITIS WITHOUT BLEEDING Active [facility] ACHALASIA OF CARDIA Active [facility] Medications Medication Details Route Status Patient Instructions Ordering Provider Order Date Source Albuterol 0.833 MG/ML / Ipratropium [place] 0.167 MG/ML Inhalant Solution 3 mL, Route: NEB, Drug Form: SOLN, Dosing Weight 113.636, kg, ONCE, STAT, Start date: 04/09/17 6:36:00 CDT, Stop date: 04/09/17 6:36:00 CDTNotes: (Same as: Thelma) Inactive 04/09/2017 [facility] sodium chloride 0.9% 500 ml INJ 500 mL 500 mL, Rate: 25 ml/hr, Infuse over: 20 hr, Route: IV, Dosing Weight 113.636 kg, Total Volume: 500, Start date: 04/09/17 6:36:00 CDT, Duration: 30 day, Stop date: 05/09/17 6:35:00 CDT Inactive 04/09/2017 [facility] Aleve 220 mg, PO, as needed, 0 Refill(s) Active 04/07/2017 [facility] Advil PO, as needed Active 04/07/2017 [facility] Amoxicillin 875 MG / Clavulanate 125 MG Oral Tablet [Augmentin 875-mg] 875 mg=1 tab, PO, Q12H, X 7 day, # 14 tab, 0 Refill(s) Active 10/19/2015 [facility] pantoprazole 40 MG Granules [Protonix] =1 Pack, PO, Daily, # 30 ea, 0 Refill(s) Active 10/19/2015 [facility] Sucralfate 100 MG/ML Oral Suspension 1 gm=10 ml, PO, Before Meals & Bedtime, # 200 ml, 1 Refill(s) Active 10/19/2015 [facility] PLease do not give Vanco prior to trough is collected PLease do not give Vanco prior to trough is collected, Reminder, Drug form: MISC, Route: MISC, ONCE, 10/18/15 17:00:00 CDT, Stop date: 10/18/15 17:00:00 CDT Inactive 10/18/2015 [facility] Protonix 40 mg, Route: IVP, Drug form: INJ, BID, Dosing Weight 113.636, kg, Start date: 10/18/15 9:00:00 CDT, Duration: 30 day, Stop date: 11/16/15 17:00:00 CDTNotes: For IV push reconstitute with 10 ml 0.9% sod ium chloride and push over 2 minutes. (Same as: Protonix) No Longer Active 10/18/2015 [facility] Sucralfate 100 MG/ML Oral Suspension [Carafate] [...] (Same As: Carafate) No Longer Active 10/18/2015 [facility] Sodium Chloride 0.154 MEQ/ML Injectable Solution 1,000 mL, Rate: 25 ml/hr, Infuse over: 40 hr, Route: IV, Dosing Weight 113.636 kg, Total Volume: 1,000, Start date: 10/18/15 8:11:00 CDT, Duration: 30 day, Stop date: 11/17/15 8:10:00 CDT No Longer Active 10/18/2015 [facility] Reglan 10 mg, 2 mL, Route: IVP, Drug form: INJ, Q6H, Dosing Weight 113.636, kg, Start date: 10/18/15 0:00:00 CDT, Duration: 30 day, Stop date: 11/16/15 18:00:00 CDTNotes: (Same as: Reglan) No Longer Active 10/18/2015 [facility] meropenem 500 mg, Route: IV, Q6Hnow, Dosing Weight 113.636, kg, Start date: 10/16/15 16:00:00 CDT, Duration: 30 day, Stop date: 11/15/15 14:00:00 CDTNotes: Same as Merrem MEDICATION WASTE Product Size: 500 mg Product Wasted: ___ mg No Longer Active 10/16/2015 [facility] Ondansetron 4 mg, 2 mL, Route: IVP, Drug form: INJ, Q6H, Dosing Weight 113.636, kg, PRN Nausea & Vomiting, Start date: 10/16/15 14:01:00 CDT, Duration: 30 day, Stop date: 11/15/15 14:00:00 CDTNotes: (Same as: Herb) MEDICATION WASTE Product Size: 4 mg Product Wasted: ___ mg No Longer Active 10/16/2015 [facility] Sodium Chloride 0.154 MEQ/ML Injectable Solution 1,000 mL, Rate: 75 ml/hr, Infuse over: 13.3 hr, Route: IV, Dosing Weight 113.636 kg, Total Volume: 1,000, Start date: 10/16/15 14:01:00 CDT, Duration: 30 day, Stop date: 11/15/15 14:00:00 CDT No Longer Active 10/16/2015 [facility] Acetaminophen 650 mg, 2 tab, Route: PO, Drug form: TAB, Q4H, Dosing Weight 113.636, kg, PRN Pain 1-3/Temp > 100.4 F, Start date: 10/16/15 14:01:00 CDT, Duration: 30 day, Stop date: 11/15/15 14:00:00 CDTNotes: Do not exceed 4 gm/day. (Same as: Tylenol) No Longer Active 10/16/2015 [facility] Saline Flush 0.9% 10 ml, Route: IVP, Drug Form: INJ, Dosing Weight 113.636, kg, PRN, PRN Line Flush, Start date: 10/16/15 14:01:00 CDT, Duration: 30 day, Stop date: 11/15/15 14:00:00 CDTNotes: (Same as: BD Posiflush) No Longer Active 10/16/2015 [facility] Vancomycin 1 gm, Route: IVPB, [id number], Dosing Weight 113.636, kg, Priority: STAT, Start date: 10/16/15 14:01:00 CDT, Duration: 30 day, Stop date: 11/15/15 6:00:00 CDTNotes: TIME CRITICAL MEDICATION (Same As: Vancocin) Infusion rate 2001 mg: infuse over 2.5 hours MEDICATION WASTE Product Size: 1000 mg Product Wasted: ___ mg No Longer Active 10/16/2015 [facility] Saline Flush 0.9% 10 mL, Route: IVP, Drug Form: INJ, Dosing Weight 113.636, kg, PRN, PRN Line Flush, Start date: 10/16/15 10:22:00 CDT, Duration: 30 day, Stop date: 11/15/15 10:21:00 CDTNotes: Same as: BD Posiflush Sterile Inactive 10/16/2015 [facility] Allergies, Adverse Reactions, Alerts No Known Medication Allergies Immunizations No Data Provided for This Section Results Order Name Results Value Reference Range Date Interpretation Comments Source HEMATOLOGY MCV 82.9 80.0 - 94.0 10/19/2015 [facility] HEMATOLOGY Hgb 14.7 14.0 - 18.0 10/19/2015 [facility] HEMATOLOGY Hct 46.2 42.0 - 54.0 10/19/2015 [facility] HEMATOLOGY RBC 5.58 4.70 - 6.10 10/19/2015 [facility] HEMATOLOGY WBC 11.4 3.7 - 10.4 10/19/2015 [facility] HEMATOLOGY Platelet 218 133 - 450 10/19/2015 [facility] HEMATOLOGY MPV 7.8 7.4 - 10.4 10/19/2015 [facility] HEMATOLOGY RDW 14.8 11.5 - 14.5 10/19/2015 [facility] HEMATOLOGY MCH 26.3 27.0 - 31.0 10/19/2015 [facility] HEMATOLOGY MCHC 31.8 32.0 - 36.0 10/19/2015 [facility] HEMATOLOGY Basophils # 0.1 0.0 - 0.2 10/19/2015 [facility] HEMATOLOGY Monocytes # 0.9 0.0 - 0.8 10/19/2015 [facility] HEMATOLOGY Lymphocytes # 2.1 1.0 - 5.5 10/19/2015 [facility] HEMATOLOGY Eosinophils # 0.3 0.0 - 0.5 10/19/2015 [facility] HEMATOLOGY Segs 70.8 45.0 - 75.0 10/19/2015 [facility] HEMATOLOGY Lymphocytes 18.5 20.0 - 40.0 10/19/2015 [facility] HEMATOLOGY Segs-Bands # 8.1 1.5 - 8.1 10/19/2015 [facility] HEMATOLOGY Basophils 0.6 0.0 - 1.0 10/19/2015 [facility] HEMATOLOGY Monocytes 7.5 2.0 - 12.0 10/19/2015 [facility] HEMATOLOGY Eosinophils 2.6 0.0 - 4.0 10/19/2015 [facility] TOXICOLOGY Vanco Tr 8.3 10/18/2015 [facility] TOXICOLOGY Vanco Tr TND 1800 10/18/2015 [facility] CHEM PANEL Procalcitonin Lvl 0.66 0.00 - 0.10 10/16/2015 [facility] VIRAL - SEROLOGY Influ A Negative (10/16/15 12:18 PM) Negative 10/16/2015 [facility] VIRAL - SEROLOGY Influ B Negative (10/16/15 12:18 PM) Negative 10/16/2015 [facility] CARDIAC ENZYMES CK MB Index 0.9 0.0 - 2.5 10/16/2015 [facility] CARDIAC ENZYMES CK MB 0.5 0.5 - 3.6 10/16/2015 [facility] CARDIAC ENZYMES Troponin-I <0.02 0.00 - 0.40 10/16/2015 [facility] CARDIAC ENZYMES BNP 24 <=100 pg/mL 10/16/2015 [facility] CARDIAC ENZYMES Total CK 56 12 - 191 10/16/2015 [facility] ELECTROLYTES Potassium Lvl 4.1 3.5 - 5.1 10/16/2015 [facility] ELECTROLYTES Sodium Lvl 137 135 - 145 10/16/2015 [facility] ELECTROLYTES Chloride Lvl 107 95 - 109 10/16/2015 [facility] ELECTROLYTES Calcium Lvl 8.8 8.5 - 10.5 10/16/2015 [facility] ELECTROLYTES AGAP 9.1 10.0 - 20.0 10/16/2015 [facility] ELECTROLYTES CO2 25 24 - 32 10/16/2015 [facility] ELECTROLYTES Creatinine Lvl 1.03 0.50 - 1.40 10/16/2015 [facility] ELECTROLYTES Glucose Lvl 107 70 - 99 10/16/2015 [facility] ELECTROLYTES BUN 15 7 - 22 10/16/2015 [facility] ELECTROLYTES eGFR 76 10/16/2015 Result Comment: [...] should be multiplied by the estimated BMI. [facility] HEMATOLOGY Plt Morph Normal (10/16/15 10:58 AM) 10/16/2015 [facility] HEMATOLOGY RBC Morph Normal (10/16/15 10:58 AM) 10/16/2015 [facility] HEMATOLOGY Basophils 0.4 0.0 - 1.0 10/16/2015 [facility] HEMATOLOGY Segs-Bands # 21.6 1.5 - 8.1 10/16/2015 [facility] HEMATOLOGY Lymphocytes # 1.1 1.0 - 5.5 10/16/2015 [facility] HEMATOLOGY Monocytes # 1.1 0.0 - 0.8 10/16/2015 [facility] HEMATOLOGY Eosinophils # 0.1 0.0 - 0.5 10/16/2015 [facility] Basophils # 0.1 0.0 - 0.2 10/16/2015 [facility] Eosinophils 0.6 0.0 - 4.0 10/16/2015 [facility] Monocytes 4.7 2.0 - 12.0 10/16/2015 [facility] Segs 89.5 45.0 - 75.0 10/16/2015 [facility] Lymphocytes 4.8 20.0 - 40.0 10/16/2015 [facility] Platelet 206 133 - 450 10/16/2015 [facility] RDW 14.7 11.5 - 14.5 10/16/2015 [facility] MPV 7.5 7.4 - 10.4 10/16/2015 [facility] Hgb 15.5 14.0 - 18.0 10/16/2015 [facility] RBC 5.88 4.70 - 6.10 10/16/2015 [facility] MCV 82.5 80.0 - 94.0 10/16/2015 [facility] Hct 48.5 42.0 - 54.0 10/16/2015 [facility] MCHC 31.9 32.0 - 36.0 10/16/2015 [facility] MCH 26.3 27.0 - 31.0 10/16/2015 [facility] WBC 24.0 3.7 - 10.4 10/16/2015 [facility] Pathology Reports No Data Provided for This Section Diagnostic Reports Report Value Date Source Stomach emptying NM Patient Name: JEFFRY GARNER : 1950; Age: 67 years Male MR: [id number] Study: Stomach emptying NM 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 SL: [id number] 07/01/2017 [facility] Abdomen/Pelvis w IV contrast CT Patient Name: JEFFRY GARNER : 1950; Age: 65 years y/o Male MR: [id number] * I. COMPUTED TOMOGRAPHY SCAN OF THE [...] chest computed tomography scan of 10/16/2015. : [id number] 10/18/2015 [facility] wo [...] due to aspiration would be a consideration. [id number] 10/16/2015 [facility] 2 [...] are interstitial pneumonia versus interstitial pneumonitis SL: [id number] 10/16/2015 [facility] Chest 2 views CHEST RADIOGRAPHY CLINICAL [...] Comments Source Systolic (mm Hg) 134 04/15/2017 [facility] Diastolic (mm Hg) 79 04/15/2017 [facility] Respitory Rate 18 04/15/2017 [facility] Systolic (mm Hg) 128 04/09/2017 [facility] Diastolic (mm Hg) 88 04/09/2017 [facility] Respitory Rate 20 04/09/2017 [facility] Systolic (mm Hg) 115 04/09/2017 [facility] Diastolic (mm Hg) 86 04/09/2017 [facility] Respitory Rate 21 04/09/2017 [facility] Systolic (mm Hg) 122 04/09/2017 [facility] Diastolic (mm Hg) 81 04/09/2017 [facility] Respitory Rate 20 04/09/2017 [facility] Temperature Oral (F) 98.3 F 04/07/2017 [facility] Heart Rate 79 04/07/2017 [facility] BMI Calculated 33.98 04/07/2017 [facility] Height 182.88 cm 04/07/2017 [facility] Weight 113.636 04/07/2017 [facility] Systolic (mm Hg) 103 10/19/2015 [facility] Diastolic (mm Hg) 69 10/19/2015 [facility] Temperature Oral (F) 98.1 F 10/19/2015 [facility] Heart Rate 66 10/19/2015 [facility] Respitory Rate 18 10/19/2015 [facility] Systolic (mm Hg) 96 10/19/2015 [facility] Diastolic (mm Hg) 57 10/19/2015 [facility] Respitory Rate 18 10/19/2015 [facility] Temperature Oral (F) 98.2 F 10/19/2015 [facility] Heart Rate 67 10/19/2015 [facility] Systolic (mm Hg) 109 10/19/2015 [facility] Diastolic (mm Hg) 67 10/19/2015 [facility] Respitory Rate 16 10/19/2015 [facility] Heart Rate 66 10/19/2015 [facility] Temperature Oral (F) 98.1 F 10/19/2015 [facility] Weight 113.636 10/16/2015 [facility] BMI Calculated 33.98 10/16/2015 [facility] Height 182.88 cm 10/16/2015 [facility] BMI Calculated 33.98 10/16/2015 [facility] Height 182.88 cm 10/16/2015 [facility] Weight 113.636 10/16/2015 [facility] Encounters Location Location Details Encounter Type Encounter Number Reason For Visit Attending Provider ADM Date DC Date Status Source [facility] Outpatient [facility] [place] Outpt Diag Services [id number] Rian Reeder 12/19/2013 12/20/2013 [facility] Inpatient [id number] Florentino Hernandez 10/16/2015 10/19/2015 [facility] Bedded Outpatient [id number] [facility] [place] 04/09/2017 04/09/2017 [facility] Bedded Outpatient [id number] [facility] [place] 04/15/2017 04/15/2017 [facility] Outpatient [id number] Haider Velarde 07/01/2017 07/02/2017 [facility] Procedures Procedure Code Date Perfomer Comments Source Hernia repair [id number] 07/06/1998 [facility] Cystoscopy [id number] [facility] Ligament repair [id number] [facility] Assessment and Plan Assessment and Plan Date Source Extracted from:Title: Clinical Document Author: Haider Velarde MD Date: 10/19/15 Progress Note - Daily [facility] Completed: Oct, 08:30 by Haider Velarde MD RM: 336 - 2W, SE C3JEFFRY MOORE 65y (: 1950) M Attending: Florentino Hernandez MD Service: Pulmonary Service Reason for Admission: PNEUMONIA Working DRG: Simple pneumonia and pleurisy w/o CC/CHCF Code status: Full Code [Ordered] Current diet: [...] 0.9% IV 250 mL 1 gm IVPB [id number] 250 ml/hr Unscheduled Meds: None PRN Meds [...] myotomy as oupt. d/w and pt. 10/19/2015 [facility] Plan of Care No Data Provided for This Section Social History Social History Date Source Social History TypeResponse Smoking Status Never smoker; Exposure to Tobacco Smoke None; Cigarette Smoking Last 365 Days No; Reg Smoking Cessation Counseling No 04/15/2017 [facility] Family History No Data Provided for This Section Advance Directives No Data Provided for This Section Functional Status No Data Provided for This Section
[2019-02-01 06:12] LABS: BASOPHILS # (AUTO) 0.1 (0.0-0.1); BASOPHILS % 0.8 % (0.0-1.0); EOSINOPHILS # (AUTO) 0.6 (0.0-0.4); EOSINOPHILS % 6.2 % (0.0-6.0); HEMATOCRIT 49.8 % (38.2-49.6); HEMOGLOBIN 15.7 g/dL (14.0-18.0); LYMPHOCYTES # (AUTO) 2.4 (1.0-3.2); LYMPHOCYTES % 24.6 % (18.0-39.1); MEAN CORPUSCULAR HEMOGLOBIN 26.9 pg (28-32); MEAN CORPUSCULAR HGB CONC 31.5 g/dL (31-35); MEAN CORPUSCULAR VOLUME 85.3 fL (81-99); MONOCYTES # (AUTO) 0.8 (0.2-0.8); MONOCYTES % 7.7 % (4.4-11.3); NEUTROPHILS % 60.2 % (38.7-80.0); PLATELET COUNT 252 x10e3/uL (140-360); RED BLOOD COUNT 5.84 x10e6/uL (4.3-5.7); RED CELL DISTRIBUTION WIDTH 13.8 % (11.7-14.4)
[2019-02-01] MEDS: LIDOCAINE JELLY 2% 10ML URO-JET TOP ONE (06:16)
[2019-02-01 06:27] LABS: ANION GAP 13.3 mmol/L (8-16); CALCIUM 9.3 mg/dL (8.4-10.2); CREATININE, SERUM 1.3 mg/dL (0.72-1.25); POTASSIUM 4.3 mmol/L (3.5-5.1)
[2019-02-01 07:10] LABS: BILIRUBIN,URINE NEGATIVE (NEGATIVE); CLARITY,URINE CLOUDY (CLEAR); COLOR,URINE YELLOW (YELLOW); KETONES,URINE NEGATIVE (NEGATIVE); LEUKOCYTE ESTERASE ,URINE TRACE (NEGATIVE); NITRITE,URINE NEGATIVE (NEGATIVE); PROTEIN,URINE DIPSTICK 2+ (NEGATIVE); URINE UROBILINOGEN 1 mg/dL (0.2 - 1)
--- NOTE | 2019-02-01 07:15 | NUR ---
URINARY LEG BAG ATTACHED TO PT AND PT GIVEN D/C INSTRUCTIONS
[2019-02-01 07:31] LABS: BACTERIA,URINE FEW /HPF; EPITHELIAL CELLS,URINE FEW /LPF; RBC,URINE 21-50 /HPF (0-5)
== END 2019-02-01 07:16 | disposition home or self-care (01) ==
LOC: ER 05:27
DX: N40.1 Benign prostatic hyperplasia with lower urinary tract symptoms (principal); R33.8 Other retention of urine; F32.9 Major depressive disorder, single episode, unspecified
CPT/HCPCS: 36415; 51700; 80048; 81001; 85025; 87086; 99283

== ENCOUNTER 2019-02-05 07:28 | Inpatient (IN) | payer MEDICARE ==
[~2019-02-05] VITALS: Ht 180.3 cm; Wt 101.2 kg
--- OUTSIDE RECORDS SUMMARY | 2019-02-05 07:31 | XMS REPORT | Continuity of Care Document ---
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 Role Phone [facility] Information [facility] Unavailable Unavailable Problems Problem Status Onset Date Classification Date Reported Comments Source R12, K29.00, K22.0 Active 06/24/2017 [facility] UNK Active 03/26/2017 [facility] COUGH/ FEVER Active 10/16/2015 [facility] PNEUMONIA Active 10/16/2015 [facility] 483 - PNEUMONIA: ORGA Active 12/19/2013 [facility] [place] Arthritis Active Problem 07/04/2017 [facility] Date Source Albuterol 0.833 MG/ML / Ipratropium [place] 0.167 MG/ML Inhalant Solution 3 mL, Route: [...] [facility] Vancom[facility] 1 gm, Route: IVPB, [id number], Dosing Weight 113.636, kg, Priority: STAT, Start [...] # 0.1 0.0 - 0.5 10/16/2015 [facility] Basophils # 0.1 0.0 - 0.2 10/16/2015 [facility] Eosinophils 0.6 0.0 - 4.0 10/16/2015 [facility] Monocytes 4.7 2.0 - 12.0 10/16/2015 [facility] Segs 89.5 45.0 - 75.0 10/16/2015 [facility] Lymphocytes 4.8 20.0 - 40.0 10/16/2015 [facility] Platelet 206 133 - 450 10/16/2015 [facility] RDW 14.7 11.5 - 14.5 10/16/2015 [facility] MPV 7.5 7.4 - 10.4 10/16/2015 [facility] Hgb 15.5 14.0 - 18.0 10/16/2015 [facility] RBC 5.88 4.70 - 6.10 10/16/2015 [facility] MCV 82.5 80.0 - 94.0 10/16/2015 [facility] Hct 48.5 42.0 - 54.0 10/16/2015 [facility] MCHC 31.9 32.0 - 36.0 10/16/2015 [facility] MCH 26.3 27.0 - 31.0 10/16/2015 [facility] WBC 24.0 3.7 - 10.4 10/16/2015 [facility] Pathology Reports No Data Provided for This Section Diagnostic Reports Report Value Date Source Stomach emptying NM Patient Name: JEFFRY GARNER : 1950; Age: 67 years Male MR: [id number] Study: Stomach emptying NM 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 SL: [id number] 07/01/2017 [facility] Abdomen/Pelvis w IV contrast CT Patient Name: JEFFRY GARNER : 1950; Age: 65 years y/o Male MR: [id number] * I. COMPUTED TOMOGRAPHY SCAN OF THE [...] chest computed tomography scan of 10/16/2015. : [id number] 10/18/2015 [facility] wo contrast CT CT CHEST WITHOUT CONTRAST: [...] due to aspiration would be a consideration. [id number] 10/16/2015 [facility] 2 views DX Chest 2 views DX [...] are interstitial pneumonia versus interstitial pneumonitis SL: [id number] 10/16/2015 [facility] Chest 2 [...] Provider ADM Date DC Date Status Source [facility] Outpatient [facility] [place] Outpt Diag Services [id number] Rian Reeder 12/19/2013 12/20/2013 [facility] Inpatient [id number] Florentino Hernandez 10/16/2015 10/19/2015 [facility] Bedded Outpatient [id number] [facility] [place] 04/09/2017 04/09/2017 [facility] Bedded Outpatient [id number] [facility] [place] 04/15/2017 04/15/2017 [facility] Outpatient [id number] Haider Velarde 07/01/2017 07/02/2017 [facility] Procedures Procedure Code Date Perfomer Comments Source Hernia repair [id number] 07/06/1998 [facility] Cystoscopy [id number] [facility] Ligament repair [id number] [facility] Assessment and Plan Assessment and Plan Date Source Extracted from:Title: Clinical Document Author: Haider Velarde MD Date: 10/19/15 Progress Note - Daily [facility] Completed: Oct, 08:30 by Haider Velarde MD RM: 336 - 2W, SE C3JEFFRY MOORE 65y (: 1950) M Attending: Florentino Hernandez MD Service: Pulmonary Service Reason for Admission: PNEUMONIA Working DRG: Simple pneumonia and pleurisy w/o CC/DETENTION Code status: Full Code [Ordered] Current diet: [...] 0.9% IV 250 mL 1 gm IVPB [id number] 250 ml/hr Unscheduled Meds: None PRN Meds [...]
[2019-02-05] MEDS ORDERED: LIDOCAINE JELLY 2% 10ML URO-JET TOP ONE (07:45)
[2019-02-05 08:22] LABS: BASOPHILS # (AUTO) 0.1 (0.0-0.1); BASOPHILS % 1.4 % (0.0-1.0); EOSINOPHILS # (AUTO) 0.6 (0.0-0.4); EOSINOPHILS % 6.9 % (0.0-6.0); HEMATOCRIT 51.1 % (38.2-49.6); HEMOGLOBIN 15.9 g/dL (14.0-18.0); LYMPHOCYTES # (AUTO) 2.1 (1.0-3.2); LYMPHOCYTES % 26.3 % (18.0-39.1); MEAN CORPUSCULAR HEMOGLOBIN 26.9 pg (28-32); MEAN CORPUSCULAR HGB CONC 31.1 g/dL (31-35); MEAN CORPUSCULAR VOLUME 86.5 fL (81-99); MONOCYTES # (AUTO) 0.6 (0.2-0.8); NEUTROPHILS # (AUTO) 4.6 (2.1-6.9); NEUTROPHILS % 57.6 % (38.7-80.0); PLATELET COUNT 265 x10e3/uL (140-360); RED BLOOD COUNT 5.91 x10e6/uL (4.3-5.7); RED CELL DISTRIBUTION WIDTH 13.6 % (11.7-14.4)
[2019-02-05 08:45] LABS: ALANINE AMINOTRANSFERASE 20 IU/L (0-55); ALBUMIN 3.7 g/dL (3.5-5.0); ALBUMIN/GLOBULIN RATIO 1.2 (0.8-2.0); ALKALINE PHOSPHATASE 99 IU/L (40-150); ANION GAP 13.5 mmol/L (8-16); BLOOD UREA NITROGEN 12 mg/dL (7-26); BUN/CREATININE RATIO 10 (6-25); CALCIUM 9.3 mg/dL (8.4-10.2); CARBON DIOXIDE 26 mmol/L (22-29); CHLORIDE 105 mmol/L (98-107); CREATININE, SERUM 1.17 mg/dL (0.72-1.25); EST GLOMERULAR FILTRATION RATE > 60 ML/MIN (60-); GLUCOSE 139 mg/dL (74-118); POTASSIUM 4.5 mmol/L (3.5-5.1); SODIUM 140 mmol/L (136-145)
[2019-02-05] MEDS ORDERED: ONDANSETRON HCL INJ 2MG/ML 2ML 2 MG/ML VIAL IV PRN (08:45)
--- OUTSIDE RECORDS SUMMARY | 2019-02-05 08:58 | XMS REPORT | Continuity of Care Document ---
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 Name Role Phone Bauzaar Information [employer] Unavailable Unavailable Problems Problem Status Onset Date Classification Date Reported Comments Source R12, K29.00, K22.0 Active 06/24/2017 [facility] UNK Active 03/26/2017 [facility] COUGH/ FEVER Active 10/16/2015 [facility] PNEUMONIA Active 10/16/2015 [facility] 483 - PNEUMONIA: ORGA Active 12/19/2013 [facility] [place] Arthritis Active Problem 07/04/2017 [facility] Hearing decreased Active Problem 07/04/2017 [facility] Heartburn Active Problem 07/04/2017 [facility] Leukocytosis Resolved Problem 07/04/2017 [facility] Anxiety and depression Active Problem 07/04/2017 [facility] Sleep apnea Active Problem 07/04/2017 [facility] PNEUMONIA, UNSPECIFIED ORGANISM Active [facility] DYSPHAGIA, UNSPECIFIED Active [facility] FUNCTIONAL DYSPEPSIA Active [facility] CANDIDAL ESOPHAGITIS Active [facility] HEARTBURN Active [facility] ACUTE GASTRITIS WITHOUT BLEEDING Active [facility] ACHALASIA OF CARDIA Active [facility] Medications Medication Details Route Status Patient Instructions Ordering Provider Order Date Source Albuterol 0.833 MG/ML / Ipratropium Langford 0.167 MG/ML Inhalant Solution 3 mL, Route: NEB, Drug Form: SOLN, Dosing Weight 113.636, kg, ONCE, STAT, Start date: 04/09/17 6:36:00 CDT, Stop date: 04/09/17 6:36:00 CDTNotes: (Same as: Thelma) Inactive 04/09/2017 [facility] sodium chloride 0.9% 500 ml INJ 500 mL 500 mL, Rate: 25 ml/hr, Infuse over: 20 hr, Route: IV, Dosing Weight 113.636 kg, Total Volume: 500, Start date: 04/09/17 6:36:00 CDT, Duration: 30 day, Stop date: 05/09/17 6:35:00 CDT Inactive 04/09/2017 [facility] Aleve 220 mg, PO, as needed, 0 Refill(s) Active 04/07/2017 [facility] Advil PO, as needed Active 04/07/2017 [facility] Amoxicillin 875 MG / Clavulanate 125 MG Oral Tablet [Augmentin 875-mg] 875 mg=1 tab, PO, Q12H, X 7 day, # 14 tab, 0 Refill(s) Active 10/19/2015 [facility] pantoprazole 40 MG Granules [Protonix] =1 Pack, PO, Daily, # 30 ea, 0 Refill(s) Active 10/19/2015 [facility] Sucralfate 100 MG/ML Oral Suspension 1 gm=10 ml, PO, Before Meals & Bedtime, # 200 ml, 1 Refill(s) Active 10/19/2015 [facility] PLease do not give Vanco prior to trough is collected PLease do not give Vanco prior to trough is collected, Reminder, Drug form: MISC, Route: MISC, ONCE, 10/18/15 17:00:00 CDT, Stop date: 10/18/15 17:00:00 CDT Inactive 10/18/2015 [facility] Protonix 40 mg, Route: IVP, Drug form: INJ, BID, Dosing Weight 113.636, kg, Start date: 10/18/15 9:00:00 CDT, Duration: 30 day, Stop date: 11/16/15 17:00:00 CDTNotes: For IV push reconstitute with 10 ml 0.9% sod ium chloride and push over 2 minutes. (Same as: Protonix) No Longer Active 10/18/2015 [facility] Sucralfate 100 MG/ML Oral Suspension [Carafate] [...] (Same As: Carafate) No Longer Active 10/18/2015 [facility] Sodium Chloride 0.154 MEQ/ML Injectable Solution 1,000 mL, Rate: 25 ml/hr, Infuse over: 40 hr, Route: IV, Dosing Weight 113.636 kg, Total Volume: 1,000, Start date: 10/18/15 8:11:00 CDT, Duration: 30 day, Stop date: 11/17/15 8:10:00 CDT No Longer Active 10/18/2015 [facility] Reglan 10 mg, 2 mL, Route: IVP, Drug form: INJ, Q6H, Dosing Weight 113.636, kg, Start date: 10/18/15 0:00:00 CDT, Duration: 30 day, Stop date: 11/16/15 18:00:00 CDTNotes: (Same as: Reglan) No Longer Active 10/18/2015 [facility] meropenem 500 mg, Route: IV, Q6Hnow, Dosing Weight 113.636, kg, Start date: 10/16/15 16:00:00 CDT, Duration: 30 day, Stop date: 11/15/15 14:00:00 CDTNotes: Same as [facility] MEDICATION WASTE Product Size: 500 mg Product Wasted: ___ mg No Longer Active 10/16/2015 [facility] Ondansetron 4 mg, 2 mL, Route: IVP, Drug form: INJ, Q6H, Dosing Weight 113.636, kg, PRN Nausea & Vomiting, Start date: 10/16/15 14:01:00 CDT, Duration: 30 day, Stop date: 11/15/15 14:00:00 CDTNotes: (Same as: Herb) MEDICATION WASTE Product Size: 4 mg Product Wasted: ___ mg No Longer Active 10/16/2015 [facility] Sodium Chloride 0.154 MEQ/ML Injectable Solution 1,000 mL, Rate: 75 ml/hr, Infuse over: 13.3 hr, Route: IV, Dosing Weight 113.636 kg, Total Volume: 1,000, Start date: 10/16/15 14:01:00 CDT, Duration: 30 day, Stop date: 11/15/15 14:00:00 CDT No Longer Active 10/16/2015 [facility] Acetaminophen 650 mg, 2 tab, Route: PO, Drug form: TAB, Q4H, Dosing Weight 113.636, kg, PRN Pain 1-3/Temp > 100.4 F, Start date: 10/16/15 14:01:00 CDT, Duration: 30 day, Stop date: 11/15/15 14:00:00 CDTNotes: Do not exceed 4 gm/day. (Same as: Tylenol) No Longer Active 10/16/2015 [facility] Saline Flush 0.9% 10 ml, Route: IVP, Drug Form: INJ, Dosing Weight 113.636, kg, PRN, PRN Line Flush, Start date: 10/16/15 14:01:00 CDT, Duration: 30 day, Stop date: 11/15/15 14:00:00 CDTNotes: (Same as: BD Posiflush) No Longer Active 10/16/2015 [facility] Vancomycin 1 gm, Route: IVPB, [id number], Dosing Weight 113.636, kg, Priority: STAT, Start date: 10/16/15 14:01:00 CDT, Duration: 30 day, Stop date: 11/15/15 6:00:00 CDTNotes: TIME CRITICAL MEDICATION (Same As: Vancocin) Infusion rate 2001 mg: infuse over 2.5 hours MEDICATION WASTE Product Size: 1000 mg Product Wasted: ___ mg No Longer Active 10/16/2015 [facility] Saline Flush 0.9% 10 mL, Route: IVP, Drug Form: INJ, Dosing Weight 113.636, kg, PRN, PRN Line Flush, Start date: 10/16/15 10:22:00 CDT, Duration: 30 day, Stop date: 11/15/15 10:21:00 CDTNotes: Same as: BD Posiflush Sterile Inactive 10/16/2015 [facility] Allergies, Adverse Reactions, Alerts No Known Medication Allergies Immunizations No Data Provided for This Section Results Order Name Results Value Reference Range Date Interpretation Comments Source HEMATOLOGY MCV 82.9 80.0 - 94.0 10/19/2015 [facility] HEMATOLOGY Hgb 14.7 14.0 - 18.0 10/19/2015 [facility] HEMATOLOGY Hct 46.2 42.0 - 54.0 10/19/2015 [facility] HEMATOLOGY RBC 5.58 4.70 - 6.10 10/19/2015 [facility] HEMATOLOGY WBC 11.4 3.7 - 10.4 10/19/2015 [facility] HEMATOLOGY Platelet 218 133 - 450 10/19/2015 [facility] HEMATOLOGY MPV 7.8 7.4 - 10.4 10/19/2015 [facility] HEMATOLOGY RDW 14.8 11.5 - 14.5 10/19/2015 [facility] HEMATOLOGY MCH 26.3 27.0 - 31.0 10/19/2015 [facility] HEMATOLOGY MCHC 31.8 32.0 - 36.0 10/19/2015 [facility] HEMATOLOGY Basophils # 0.1 0.0 - 0.2 10/19/2015 [facility] HEMATOLOGY Monocytes # 0.9 0.0 - 0.8 10/19/2015 [facility] HEMATOLOGY Lymphocytes # 2.1 1.0 - 5.5 10/19/2015 [facility] HEMATOLOGY Eosinophils # 0.3 0.0 - 0.5 10/19/2015 [facility] HEMATOLOGY Segs 70.8 45.0 - 75.0 10/19/2015 [facility] HEMATOLOGY Lymphocytes 18.5 20.0 - 40.0 10/19/2015 [facility] HEMATOLOGY Segs-Bands # 8.1 1.5 - 8.1 10/19/2015 [facility] HEMATOLOGY Basophils 0.6 0.0 - 1.0 10/19/2015 [facility] HEMATOLOGY Monocytes 7.5 2.0 - 12.0 10/19/2015 [facility] HEMATOLOGY Eosinophils 2.6 0.0 - 4.0 10/19/2015 [facility] TOXICOLOGY Vanco Tr 8.3 10/18/2015 [facility] TOXICOLOGY Vanco Tr TND 1800 10/18/2015 [facility] CHEM PANEL Procalcitonin Lvl 0.66 0.00 - 0.10 10/16/2015 [facility] VIRAL - SEROLOGY Influ A Negative (10/16/15 12:18 PM) Negative 10/16/2015 [facility] VIRAL - SEROLOGY Influ B Negative (10/16/15 12:18 PM) Negative 10/16/2015 [facility] CARDIAC ENZYMES CK MB Index 0.9 0.0 - 2.5 10/16/2015 [facility] CARDIAC ENZYMES CK MB 0.5 0.5 - 3.6 10/16/2015 [facility] CARDIAC ENZYMES Troponin-I <0.02 0.00 - 0.40 10/16/2015 [facility] CARDIAC ENZYMES BNP 24 <=100 pg/mL 10/16/2015 [facility] CARDIAC ENZYMES Total CK 56 12 - 191 10/16/2015 [facility] ELECTROLYTES Potassium Lvl 4.1 3.5 - 5.1 10/16/2015 [facility] ELECTROLYTES Sodium Lvl 137 135 - 145 10/16/2015 [facility] ELECTROLYTES Chloride Lvl 107 95 - 109 10/16/2015 [facility] ELECTROLYTES Calcium Lvl 8.8 8.5 - 10.5 10/16/2015 [facility] ELECTROLYTES AGAP 9.1 10.0 - 20.0 10/16/2015 [facility] ELECTROLYTES CO2 25 24 - 32 10/16/2015 [facility] ELECTROLYTES Creatinine Lvl 1.03 0.50 - 1.40 10/16/2015 [facility] ELECTROLYTES Glucose Lvl 107 70 - 99 10/16/2015 [facility] ELECTROLYTES BUN 15 7 - 22 10/16/2015 [facility] ELECTROLYTES eGFR 76 10/16/2015 Result Comment: [...] should be multiplied by the estimated BMI. [facility] HEMATOLOGY Plt Morph Normal (10/16/15 10:58 AM) 10/16/2015 [facility] HEMATOLOGY RBC Morph Normal (10/16/15 10:58 AM) 10/16/2015 [facility] HEMATOLOGY Basophils 0.4 0.0 - 1.0 10/16/2015 [facility] HEMATOLOGY Segs-Bands # 21.6 1.5 - 8.1 10/16/2015 [facility] HEMATOLOGY Lymphocytes # 1.1 1.0 - 5.5 10/16/2015 [facility] HEMATOLOGY Monocytes # 1.1 0.0 - 0.8 10/16/2015 [facility] HEMATOLOGY Eosinophils # 0.1 0.0 - 0.5 10/16/2015 [facility] Basophils # 0.1 0.0 - 0.2 10/16/2015 [facility] [place] Eosinophils 0.6 0.0 - 4.0 10/16/2015 [facility] [place] Monocytes 4.7 2.0 - 12.0 10/16/2015 [facility] [place] Segs 89.5 45.0 - 75.0 10/16/2015 [facility] [place] Lymphocytes 4.8 20.0 - 40.0 10/16/2015 [facility] [place] Platelet 206 133 - 450 10/16/2015 [facility] [place] RDW 14.7 11.5 - 14.5 10/16/2015 [facility] [place] MPV 7.5 7.4 - 10.4 10/16/2015 [facility] [place] Hgb 15.5 14.0 - 18.0 10/16/2015 [facility] [place] RBC 5.88 4.70 - 6.10 10/16/2015 [facility] [place] MCV 82.5 80.0 - 94.0 10/16/2015 [facility] [place] Hct 48.5 42.0 - 54.0 10/16/2015 [facility] [place] MCHC 31.9 32.0 - 36.0 10/16/2015 [facility] [place] MCH 26.3 27.0 - 31.0 10/16/2015 [facility] [place] WBC 24.0 3.7 - 10.4 10/16/2015 [facility] Pathology Reports No Data Provided for This Section Diagnostic Reports Report Value Date Source Stomach emptying NM Patient Name: JEFFRY GARNER : 1950; Age: 67 years Male MR: [id number] Study: Stomach emptying NM 07/01/2017 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 SL: [id number] 07/01/2017 [facility] Abdomen/Pelvis w IV contrast CT Patient Name: JEFFRY GARNER : 1950; Age: 65 years y/o Male MR: [id number] * I. COMPUTED TOMOGRAPHY SCAN OF THE [...] chest computed tomography scan of 10/16/2015. : [id number] 10/18/2015 [facility] wo contrast CT CT CHEST WITHOUT [...] due to aspiration would be a consideration. [id number] 10/16/2015 [facility] 2 views DX Chest 2 views [...] are interstitial pneumonia versus interstitial pneumonitis SL: [id number] 10/16/2015 [facility] Chest 2 views CHEST RADIOGRAPHY CLINICAL [...] Comments Source Systolic (mm Hg) 134 04/15/2017 [facility] Diastolic (mm Hg) 79 04/15/2017 [facility] Respitory Rate 18 04/15/2017 [facility] Systolic (mm Hg) 128 04/09/2017 [facility] Diastolic (mm Hg) 88 04/09/2017 [facility] Respitory Rate 20 04/09/2017 [facility] Systolic (mm Hg) 115 04/09/2017 [facility] Diastolic (mm Hg) 86 04/09/2017 [facility] Respitory Rate 21 04/09/2017 [facility] Systolic (mm Hg) 122 04/09/2017 [facility] Diastolic (mm Hg) 81 04/09/2017 [facility] Respitory Rate 20 04/09/2017 [facility] Temperature Oral (F) 98.3 F 04/07/2017 [facility] Heart Rate 79 04/07/2017 [facility] BMI Calculated 33.98 04/07/2017 [facility] Height 182.88 cm 04/07/2017 [facility] Weight 113.636 04/07/2017 [facility] Systolic (mm Hg) 103 10/19/2015 [facility] Diastolic (mm Hg) 69 10/19/2015 [facility] Temperature Oral (F) 98.1 F 10/19/2015 [facility] Heart Rate 66 10/19/2015 [facility] Respitory Rate 18 10/19/2015 [facility] Systolic (mm Hg) 96 10/19/2015 [facility] Diastolic (mm Hg) 57 10/19/2015 [facility] Respitory Rate 18 10/19/2015 [facility] Temperature Oral (F) 98.2 F 10/19/2015 [facility] Heart Rate 67 10/19/2015 [facility] Systolic (mm Hg) 109 10/19/2015 [facility] Diastolic (mm Hg) 67 10/19/2015 [facility] Respitory Rate 16 10/19/2015 [facility] Heart Rate 66 10/19/2015 [facility] Temperature Oral (F) 98.1 F 10/19/2015 [facility] Weight 113.636 10/16/2015 [facility] BMI Calculated 33.98 10/16/2015 [facility] Height 182.88 cm 10/16/2015 [facility] BMI Calculated 33.98 10/16/2015 [facility] Height 182.88 cm 10/16/2015 [facility] Weight 113.636 10/16/2015 [facility] Encounters Location Location Details Encounter Type Encounter Number Reason For Visit Attending Provider ADM Date DC Date Status Source [facility] [place] Diag Services [id number] Rian Reeder 12/19/2013 12/20/2013 [facility] Inpatient [id number] Florentino Henrandez 10/16/2015 10/19/2015 [facility] Bedded Outpatient [id number] [facility] 04/09/2017 04/09/2017 [facility] Bedded Outpatient [id number] [facility] 04/15/2017 04/15/2017 [facility] Outpatient [id number] Haider Velarde 07/01/2017 07/02/2017 [facility] Procedures Procedure Code Date Perfomer Comments Source Hernia repair [id number] 07/06/1998 [facility] Cystoscopy [id number] [facility] Ligament repair [id number] [facility] Assessment and Plan Assessment and Plan Date Source Extracted from:Title: Clinical Document Author: Haider Velarde MD Date: 10/19/15 Progress Note - Daily [facility] Completed: Oct, 08:30 by Haider Velarde [...] 0.9% IV 250 mL 1 gm IVPB [id number] 250 ml/hr Unscheduled Meds: None PRN Meds [...] myotomy as oupt. d/w and pt. 10/19/2015 [facility] Plan of Care No Data Provided for This Section Social History Social History Date Source Social History TypeResponse Smoking Status Never smoker; Exposure to Tobacco Smoke None; Cigarette Smoking Last 365 Days No; Reg Smoking Cessation Counseling No 04/15/2017 [facility] Family History No Data Provided for This Section Advance Directives No Data Provided for This Section Functional Status No Data Provided for This Section
[2019-02-05 09:05] LABS: CLARITY,URINE SL CLOUDY (CLEAR); COLOR,URINE YELLOW (YELLOW)
[2019-02-05 09:06] LABS: KETONES,URINE NEGATIVE (NEGATIVE); LEUKOCYTE ESTERASE ,URINE 1+ (NEGATIVE); NITRITE,URINE NEGATIVE (NEGATIVE); PROTEIN,URINE DIPSTICK 1+ (NEGATIVE); URINE UROBILINOGEN 0.2 mg/dL (0.2 - 1)
[2019-02-05 09:07] LABS: BILIRUBIN,URINE NEGATIVE (NEGATIVE)
[2019-02-05] MEDS ORDERED: SODIUM CHLORIDE 0.9% 1000ML 1,000 ML ONE (09:07)
[2019-02-05 09:09] LABS: WBC,URINE (MAN) >50 /HPF (0-5)
[2019-02-05 09:10] LABS: BACTERIA,URINE FEW /HPF; RBC,URINE >50 /HPF (0-5)
[2019-02-05 09:11] LABS: EPITHELIAL CELLS,URINE RARE /LPF; MUCUS,URINE RARE (RARE)
[2019-02-05] MEDS: SODIUM CHLORIDE 0.9% 1000ML 1,000 ML IV SCH ×3 (09:25→21:45)
--- NOTE | 2019-02-05 11:00 | NUR ---
Received patient from ER patient is alert and oriented x3 able to transfer from wheel chair to bed and ambulate independently. Has a Pickett catheter #20 kazakh Cude, inserted in the ER, related to urinary retention, per Katie Mcdermott's orders. Pickett is patent draining clear yellow joseph urine. IV access to left AC IVF NS infusing @125mls/hr. Patient Denies pain, verbalizing needs, oriented to room and use of call light. Belongings and call light within reach instructed to call when needing assistance.
[2019-02-05 11:30] VITALS: BP 101/75
[2019-02-05 12:00] VITALS: BP 118/73
[2019-02-05] MEDS ORDERED: B&O 60MG R/S 60 MG SUPP PR PRN (13:30)
[2019-02-05] MEDS: CEFTRIAXONE SOD 1 GM/NS 50 ML 50 ML IV SCH (14:33)
[2019-02-05 17:05] VITALS: BP 123/73
[2019-02-05] MEDS: PHENAZOPYRIDINE HCL 100 MG TAB PO SCH (18:20)
[2019-02-05 20:00] VITALS: BP 115/70
[2019-02-05 21:02] VITALS: BP 115/70
[2019-02-06] VITALS (8 sets, daily range): BP systolic 96–125; BP diastolic 60–69
[2019-02-06 06:31] LABS: BASOPHILS # (AUTO) 0.1 (0.0-0.1); BASOPHILS % 0.7 % (0.0-1.0); EOSINOPHILS # (AUTO) 0.5 (0.0-0.4); EOSINOPHILS % 5.9 % (0.0-6.0); HEMATOCRIT 46.6 % (38.2-49.6); HEMOGLOBIN 14.2 g/dL (14.0-18.0); LYMPHOCYTES # (AUTO) 2.4 (1.0-3.2); LYMPHOCYTES % 27.2 % (18.0-39.1); MEAN CORPUSCULAR HEMOGLOBIN 26.6 pg (28-32); MEAN CORPUSCULAR HGB CONC 30.5 g/dL (31-35); MEAN CORPUSCULAR VOLUME 87.4 fL (81-99); MONOCYTES # (AUTO) 0.6 (0.2-0.8); MONOCYTES % 7.2 % (4.4-11.3); NEUTROPHILS # (AUTO) 5.1 (2.1-6.9); NEUTROPHILS % 58.4 % (38.7-80.0); PLATELET COUNT 228 x10e3/uL (140-360); RED BLOOD COUNT 5.33 x10e6/uL (4.3-5.7); RED CELL DISTRIBUTION WIDTH 13.7 % (11.7-14.4)
--- NOTE | 2019-02-06 07:09 | NUR ---
report given to oncoming nurse, patient in stable condition.
[2019-02-06 07:13] LABS: ALANINE AMINOTRANSFERASE 17 IU/L (0-55); ALBUMIN 3.1 g/dL (3.5-5.0); ALBUMIN/GLOBULIN RATIO 1.2 (0.8-2.0); ALKALINE PHOSPHATASE 78 IU/L (40-150); ANION GAP 12.5 mmol/L (8-16); BLOOD UREA NITROGEN 10 mg/dL (7-26); BUN/CREATININE RATIO 9 (6-25); CALCIUM 8.7 mg/dL (8.4-10.2); CARBON DIOXIDE 27 mmol/L (22-29); CHLORIDE 107 mmol/L (98-107); CREATININE, SERUM 1.13 mg/dL (0.72-1.25); EST GLOMERULAR FILTRATION RATE > 60 ML/MIN (60-); GLUCOSE 115 mg/dL (74-118); POTASSIUM 4.5 mmol/L (3.5-5.1); SODIUM 142 mmol/L (136-145)
[2019-02-06] MEDS: SODIUM CHLORIDE 0.9% 1000ML 1,000 ML IV SCH ×2 (08:37→16:37)
[2019-02-06] MEDS: PHENAZOPYRIDINE HCL 100 MG TAB PO SCH ×3 (10:55→18:58)
[2019-02-06] MEDS: CEFTRIAXONE SOD 1 GM/NS 50 ML 50 ML IV SCH (14:37)
--- NOTE | 2019-02-06 19:13 | NUR ---
received report on patient, patient aaox3. no needs voiced at this time. bed locked and in lowest position, call light within easy reach.
--- NOTE | 2019-02-06 19:13 | NUR ---
Handoff report to oncoming nurse, made aware patient needed urological consent. Patient to be NPO after midnight for procedure.
[2019-02-07] VITALS (8 sets, daily range): BP systolic 112–121; BP diastolic 57–80
[2019-02-07] MEDS: SODIUM CHLORIDE 0.9% 1000ML 1,000 ML IV SCH ×3 (00:37→16:37)
--- NOTE | 2019-02-07 07:00 | NUR ---
PT RESTING IN BED AA0X3 PT IS IN NO S.S OF DISTRESS DENIES PAIN PT HAS BRASWELL CATH WITH LIGHT HAYDEE URINE NOTED PT HAS IV TO THE LEFT FA20 SL. PT REFUSING IV FLUIDS PT IS NPO FOR SCHEDULED TURP AROUND 1500 PT AWARE OF TIME WILL CONTINUE TO MONITOR PT CLOSELY SIDE RAILSX2, BED WHEELS LOCKED CALL LIGHT IS WITHIN EASY REACH, INSTRUCTED TO CALL FOR ASSISTANCE IF NEEDED
[2019-02-07] MEDS ORDERED: MORPHINE SULFATE INJ 4 MG/ML INJ 1ML IV PRN (08:15)
[2019-02-07] MEDS: PHENAZOPYRIDINE HCL 100 MG TAB PO SCH ×2 (09:00→11:30)
--- NOTE | 2019-02-07 13:08 | NUR ---
IMM EXPLAINED TO PT, SIGNED BY PT AND PLACED IN CHART COPY TO PT IN CARE TRANSITIONS FOLDER
[2019-02-07] MEDS: CEFTRIAXONE SOD 1 GM/NS 50 ML 50 ML IV SCH (14:44)
[2019-02-07] MEDS ORDERED: LIDOCAINE HCL 2% LOCAL INJ 5 ML SDV VIAL INJ ONE (15:01)
[2019-02-07] MEDS ORDERED: GENTAMICIN SULFATE 40 MG/ML 2 ML VIAL ONE (15:01)
[2019-02-07] MEDS ORDERED: PROPOFOL IV EMULSION 10 MG/ML 20 ML VIAL ONE (15:01)
[2019-02-07] MEDS ORDERED: DESFLURANE 240 ML BTL INH ONE (15:01)
[2019-02-07] MEDS ORDERED: FUROSEMIDE INJ 10 MG/ML 4 ML VIAL ONE (15:01)
[2019-02-07] MEDS ORDERED: ONDANSETRON HCL INJ 2MG/ML 2ML 2 MG/ML VIAL ONE ×2 (15:01→19:43)
[2019-02-07] MEDS ORDERED: DEXAMETHASONE SOD PHOS INJ 4 MG/ML VIAL ONE (15:01)
--- NOTE | 2019-02-07 16:50 | NUR ---
PT OFF UNIT FOR SCHEDULED SX
[2019-02-07] MEDS ORDERED: B&O 60MG R/S 60 MG SUPP PR ONE (18:06)
[2019-02-07] MEDS ORDERED: ACETAMINOPHEN/CODEINE 300MG - 30MG TAB PO PRN (19:30)
[2019-02-07] MEDS ORDERED: B&O 60MG R/S 60 MG SUPP PR PRN (19:30)
[2019-02-07] MEDS ORDERED: HYDROMORPHONE 2MG/ML 2 MG/ML ML ONE (19:42)
[2019-02-07] MEDS ORDERED: PROMETHAZINE HCL (IM) 25 MG/ML VIAL ONE (19:48)
--- NOTE | 2019-02-07 20:15 | NUR ---
Received the pt from pacu S/P TURP done by .aaox3.assessment done.pain voiced 04/14.On cont.bladder irrigation.bright red colored urine draining.iv fluid to left fore arm.bed locked and in lowest position.phone and call light within reach.instructed to call for assistance as needed.family member at bed side.
[2019-02-07 20:53] LABS: BASOPHILS # (AUTO) 0.1 (0.0-0.1); BASOPHILS % 0.4 % (0.0-1.0); EOSINOPHILS # (AUTO) 0.3 (0.0-0.4); EOSINOPHILS % 2.3 % (0.0-6.0); HEMATOCRIT 46.8 % (38.2-49.6); HEMOGLOBIN 14.5 g/dL (14.0-18.0); LYMPHOCYTES % 8.5 % (18.0-39.1); MEAN CORPUSCULAR HEMOGLOBIN 26.9 pg (28-32); MEAN CORPUSCULAR VOLUME 86.8 fL (81-99); MONOCYTES # (AUTO) 0.2 (0.2-0.8); MONOCYTES % 1.9 % (4.4-11.3); NEUTROPHILS # (AUTO) 10.2 (2.1-6.9); NEUTROPHILS % 85.9 % (38.7-80.0); PLATELET COUNT 231 x10e3/uL (140-360); RED BLOOD COUNT 5.39 x10e6/uL (4.3-5.7); RED CELL DISTRIBUTION WIDTH 13.6 % (11.7-14.4)
[2019-02-07 21:10] LABS: ANION GAP 14.5 mmol/L (8-16); BLOOD UREA NITROGEN 9 mg/dL (7-26); BUN/CREATININE RATIO 9 (6-25); CALCIUM 8.5 mg/dL (8.4-10.2); CARBON DIOXIDE 26 mmol/L (22-29); CHLORIDE 101 mmol/L (98-107); CREATININE, SERUM 1.04 mg/dL (0.72-1.25); EST GLOMERULAR FILTRATION RATE > 60 ML/MIN (60-); GLUCOSE 171 mg/dL (74-118); POTASSIUM 4.5 mmol/L (3.5-5.1); SODIUM 137 mmol/L (136-145)
--- NOTE | 2019-02-07 21:48 | NUR ---
Medicated with morphine 4mg iv .v/s stable.keep monitor the pt.
[2019-02-08] VITALS (8 sets, daily range): BP systolic 90–117; BP diastolic 53–71
[2019-02-08] MEDS: SODIUM CHLORIDE 0.9% 1000ML 1,000 ML IV SCH ×3 (02:23→21:42)
--- NOTE | 2019-02-08 02:23 | NUR ---
Resting in the bed.no blood clots noted.urine draining well.
--- NOTE | 2019-02-08 04:00 | NUR ---
Manually irrigated baum.small clots noted.draining well.
--- NOTE | 2019-02-08 06:00 | NUR ---
Assisted the pt to get out of the bed and sat in the chair.bath given.pt tolerated well.pt is back to bed safely.
[2019-02-08 06:33] LABS: BASOPHILS # (AUTO) 0.1 (0.0-0.1); BASOPHILS % 0.3 % (0.0-1.0); EOSINOPHILS # (AUTO) 0.5 (0.0-0.4); EOSINOPHILS % 2.7 % (0.0-6.0); HEMATOCRIT 49.5 % (38.2-49.6); HEMOGLOBIN 15.4 g/dL (14.0-18.0); LYMPHOCYTES # (AUTO) 1.3 (1.0-3.2); LYMPHOCYTES % 6.7 % (18.0-39.1); MEAN CORPUSCULAR HEMOGLOBIN 26.9 pg (28-32); MEAN CORPUSCULAR HGB CONC 31.1 g/dL (31-35); MEAN CORPUSCULAR VOLUME 86.4 fL (81-99); MONOCYTES # (AUTO) 1.3 (0.2-0.8); MONOCYTES % 6.6 % (4.4-11.3); NEUTROPHILS # (AUTO) 16.3 (2.1-6.9); NEUTROPHILS % 83.2 % (38.7-80.0); PLATELET COUNT 280 x10e3/uL (140-360); RED BLOOD COUNT 5.73 x10e6/uL (4.3-5.7); RED CELL DISTRIBUTION WIDTH 13.6 % (11.7-14.4)
[2019-02-08] MEDS: HYDROCODONE/APAP 10MG-325MG TAB PO PRN ×2 (06:39→17:51)
[2019-02-08 06:48] LABS: ANION GAP 13.3 mmol/L (8-16); BLOOD UREA NITROGEN 13 mg/dL (7-26); BUN/CREATININE RATIO 12 (6-25); CALCIUM 9.2 mg/dL (8.4-10.2); CARBON DIOXIDE 27 mmol/L (22-29); CHLORIDE 102 mmol/L (98-107); CREATININE, SERUM 1.12 mg/dL (0.72-1.25); EST GLOMERULAR FILTRATION RATE > 60 ML/MIN (60-); GLUCOSE 128 mg/dL (74-118); POTASSIUM 4.3 mmol/L (3.5-5.1); SODIUM 138 mmol/L (136-145)
--- NOTE | 2019-02-08 07:06 | NUR ---
Bed side shift report given to the oncoming Rn.stable condition.
[2019-02-08] MEDS: PHENAZOPYRIDINE HCL 100 MG TAB PO SCH ×3 (07:29→17:13)
[2019-02-08] MEDS: CEFTRIAXONE SOD 1 GM/NS 50 ML 50 ML IV SCH (13:21)
[2019-02-08] MEDS ORDERED: FENTANYL CITRATE/PF 100MCG/2 ML INJ ONE (15:11)
[2019-02-08] MEDS ORDERED: MIDAZOLAM HCL 2 MG/2 ML VIAL ONE (15:11)
[2019-02-08] MEDS: FAMOTIDINE 20 MG TAB PO SCH (15:31)
--- NOTE | 2019-02-08 20:10 | NUR ---
Aaox3.assessment done.no resp.distress.no pain voiced.uses ics.on cbi.pink colored urine draining.iv fluid to left forearm.bed locked and in lowest position.phone and call light within reach.instructed to call for assistance as needed.
[2019-02-09 00:28] VITALS: BP 97/56
[2019-02-09 04:58] VITALS: BP 104/65
[2019-02-09] MEDS: HYDROCODONE/APAP 10MG-325MG TAB PO PRN (06:14)
[2019-02-09 06:33] LABS: BASOPHILS % 0.3 % (0.0-1.0); EOSINOPHILS # (AUTO) 0.5 (0.0-0.4); EOSINOPHILS % 4.3 % (0.0-6.0); HEMATOCRIT 44.6 % (38.2-49.6); HEMOGLOBIN 13.8 g/dL (14.0-18.0); LYMPHOCYTES # (AUTO) 1.6 (1.0-3.2); LYMPHOCYTES % 13.4 % (18.0-39.1); MEAN CORPUSCULAR HEMOGLOBIN 26.8 pg (28-32); MEAN CORPUSCULAR HGB CONC 30.9 g/dL (31-35); MEAN CORPUSCULAR VOLUME 86.8 fL (81-99); MONOCYTES # (AUTO) 0.9 (0.2-0.8); MONOCYTES % 7.3 % (4.4-11.3); NEUTROPHILS # (AUTO) 8.9 (2.1-6.9); NEUTROPHILS % 74.1 % (38.7-80.0); PLATELET COUNT 236 x10e3/uL (140-360); RED BLOOD COUNT 5.14 x10e6/uL (4.3-5.7); RED CELL DISTRIBUTION WIDTH 13.7 % (11.7-14.4)
--- NOTE | 2019-02-09 07:00 | NUR ---
bedside shift report received from night rn, pt in stable condition, ivf infusing to l fa 20g no ss of infiltration noted, baum to bsd with yellow urine noted, cbi infusing to baum, no other co voiced, deneis pain at this time, call light in reach will continue ot monitor
--- NOTE | 2019-02-09 07:00 | NUR ---
Bedside shift report given to the oncoming rn.stable condition.
[2019-02-09 08:20] VITALS: BP 107/56
[2019-02-09] MEDS: PHENAZOPYRIDINE HCL 100 MG TAB PO SCH ×2 (08:20→13:20)
[2019-02-09] MEDS: FAMOTIDINE 20 MG TAB PO SCH (08:20)
[2019-02-09 08:35] VITALS: BP 107/56
--- NOTE | 2019-02-09 09:50 | NUR ---
BRASWELL DC'D PER ORDERED, TIP INTACT, PT TOLERATED WELL, INSTRUCTED PT ON SERIAL URINES, PT DTV [phone]
[2019-02-09] MEDS: SODIUM CHLORIDE 0.9% 1000ML 1,000 ML IV SCH (10:00)
--- NOTE | 2019-02-09 12:30 | NUR ---
PT VOIDED 100CC OF REDDISH YELLOW URINE NOTED,
[2019-02-09 12:45] VITALS: BP 108/55
--- NOTE | 2019-02-09 12:50 | NUR ---
REDDISH URINE COLLECTED, NO CLOTS NOTED, WILL CONTINUE TO MONITOR
--- NOTE | 2019-02-09 13:00 | NUR ---
SERIAL URINE COLLECTED, REDDISH YELLOW URINE NOTED, NO CLOTS OR PAIN NOTED WILL CONTINUE TO MONITOR
[2019-02-09] MEDS: CEFTRIAXONE SOD 1 GM/NS 50 ML 50 ML IV SCH (13:20)
--- NOTE | 2019-02-09 13:25 | NUR ---
VOIDED REDDISH YELLOW URINE NOTED WILL CONTINUE TO MONITOR
--- NOTE | 2019-02-09 13:50 | NUR ---
URINE ORANGE REDDISH URINE NOTED, SPOKE WITH DR RIVERA RE: COLLECTION OF 5 URINES AND COLOR WITH NO CLOTS NOTED, INFORMED NURSE TO CONTINUE TO MONITOR URINE COLLECT URINE'S UNTIL CLEAR.
--- NOTE | 2019-02-09 14:30 | NUR ---
ORANGE REDDISH /YELLOWISH URINE NOTED, WILL CONTINUE TO MONITOR
--- NOTE | 2019-02-09 16:10 | NUR ---
REDDISH ORANGEISH URINE NOTED, WILL CONTINUE TO MONITOR
[2019-02-09] MEDS ORDERED: LEVAQUIN500 MG PO (16:20)
[2019-02-09 16:27] VITALS: BP 101/58
--- NOTE | 2019-02-09 16:27 | NUR ---
SPOKE WITH DR RIVERA INFORMED OF REDDISH ORANGISH URINE, NO PAIN OR CLOTS NOTED, INFORMED NURSE OK TO [place] HOME.
--- NOTE | 2019-04-01 07:04 | Operative Report ---
DATE OF PROCEDURE: 02/07/2019 SURGEON: Thiago Khan MD PREOPERATIVE DIAGNOSIS: Obstructive benign prostatic hypertrophy. POSTOPERATIVE DIAGNOSIS: Obstructive benign prostatic hypertrophy. OPERATION PERFORMED: Staged and complicated cystourethroscopy with transurethral resection of the prostate. ANESTHESIA: General. COMPLICATIONS: None. CLINICAL SUMMARY: Regis De Luna is a 68-year-old man, who underwent the prostate procedure. The patient has extremely large BPH. He has residual tissue, but the problem with the patient is that he has had recurrent bouts of urinary retention. He is brought to the operating room for transurethral resection of the prostate due to recurrent of emergency room visits due to recurrent retention. He is aware of the risks of bleeding, infection, injury to adjacent structures, incontinence, impotence, retrograde ejaculation, need for additional procedures, and elected to proceed. OPERATIVE PROCEDURE IN DETAIL: Informed consent was verified. Regis De Luna was properly identified, taken to the operating room, placed on the cystoscopy table in supine position. Anesthesia was uneventfully begun. The patient was then carefully gently repositioned in dorsal lithotomy position with all pressure points were well padded. His genitalia were prepared and draped in usual sterile fashion. The cystoscope sheath was atraumatically inserted in the patient's urethra and the bladder was drained. The resectoscope was placed. Panendoscopy of the urinary bladder revealed no suspicious mucosal lesions, no tumors, no stones, no diverticula. Heavy trabeculations were noted. The prostate bed, which was significant for residual BPH tissue that is caving into the cavity causing visual obstruction. There was also significant friability of the remaining prostatic tissue. The resection loop was utilized to perform a transurethral resection of the prostate. Transurethral resection of the prostate was carried out from the bladder neck to maneuver past the verumontanum and down the surgical capsule. Pinpoint electrocautery was utilized to achieve hemostasis. Once we verified good hemostasis, we verified that we evacuated all of the prostate chips. The resectoscope was withdrawn. Pickett catheter was placed. It was irrigated to and fro to ensure it worked properly. It was placed on continuous bladder irrigation with clear efflux and the patient was uneventfully reversed from anesthesia and taken to recovery room in stable condition. There were no complications to the procedure. The patient tolerated the procedure well. Estimated blood loss was minimal. Explicit postop instructions were given. We will proceed with routine postoperative care and of course ongoing urological followup. MD GLENDA Vanegas/JESSICA /[id number]
== END 2019-02-09 18:04 | disposition home or self-care (01) | DRG 854 ==
LOC: ER 07:28 → ERHOLD 08:53 → MED/SURG 10:35
PROVIDERS: ADMIT Internal Medicine; ATTEND Internal Medicine
PROC: 0VB08ZZ Excision of Prostate, Via Natural or Artificial Opening Endoscopic (ICD-10-PCS; principal; 2019-02-05)
DX: A41.9 Sepsis, unspecified organism (principal); N39.0 Urinary tract infection, site not specified; N40.1 Benign prostatic hyperplasia with lower urinary tract symptoms; R33.8 Other retention of urine; N41.9 Inflammatory disease of prostate, unspecified; E66.9 Obesity, unspecified; Z68.31 Body mass index [BMI] 31.0-31.9, adult; R31.9 Hematuria, unspecified
CPT/HCPCS: 36415; 51700; 80048; 80053; 81001; 83735; 85025; 87086; 88305; 93005; 99284; J0696; J1100; J1580; J1940; J2001; J2250; J2270; J2405; J2550; J3010; J7030

== ENCOUNTER → 2020-05-01 | Outpatient (CLI) | payer MEDICARE | LOC: US 07:09 | PROVIDERS: ATTEND Urology | DX: R39.14 Feeling of incomplete bladder emptying (principal) | CPT/HCPCS: 74018; 76770; 76857 ==

== ENCOUNTER → 2021-06-20 | Outpatient (CLI) | payer MEDICARE | LOC: US 15:39 | PROVIDERS: ATTEND Urology | DX: N28.1 Cyst of kidney, acquired (principal) | CPT/HCPCS: 74018; 76770 ==

== ENCOUNTER 2022-08-16 13:30 | Emergency (ER) | payer MEDICARE ==
[~2022-08-16] VITALS: Ht 182.9 cm; Wt 106.6 kg
[2022-08-16] MEDS ORDERED: EYE IRRIGATION (OPTH) 120 ML BTL OP ONE (13:45)
[2022-08-16] MEDS ORDERED: TETRACAINE HCL 0.5% OPTH SOLN 4 ML BTL OP ONE (13:45)
[2022-08-16] MEDS ORDERED: TETRACAINE HCL 0.5% OPTH SOLN 4 ML BTL ONE (13:52)
[2022-08-16] MEDS ORDERED: FLUORESCEIN SOD(OPTH) 1 MG STRP OP ONE (14:00)
[2022-08-16] MEDS ORDERED: VALTREX1000 MG PO (14:52)
[2022-08-16] MEDS ORDERED: CLINDAMYCIN HC150 MG PO (14:52)
[2022-08-16] MEDS ORDERED: PREDNISONE20 MG PO (14:52)
[2022-08-16] MEDS ORDERED: VIGAMOX3 ML OP (14:52)
[2022-08-16] MEDS ORDERED: TRIFLURIDINE7.5 ML OD (14:52)
== END 2022-08-16 15:01 | disposition home or self-care (01) ==
LOC: ER 13:35
DX: L03.211 Cellulitis of face (principal); B02.30 Zoster ocular disease, unspecified; H10.9 Unspecified conjunctivitis; F41.9 Anxiety disorder, unspecified; K21.9 Gastro-esophageal reflux disease without esophagitis
CPT/HCPCS: 99284